=== PATIENT | male | born 1970 | race Caucasian/White ===

== ENCOUNTER → 2020-01-23 07:41 | Outpatient (CLI) | payer BC, SELFPAY ==
--- NOTE | ~2020-01-23 | CT_ITS ---
EXAMINATION: CT abdomen pelvis wo con DATE: 01/23/2020 07:54 INDICATION: Incisional hernia; history of malignant left renal neoplasm TECHNIQUE: Computed tomography (CT) of the abdomen and pelvis was performed without intravenous contr ast. Automated exposure control and iterative reconstruction technique were employed. Exam dose: 103 3.84 mGy-cm total exam DLP. COMPARISON: 02/07/2019 CT abdomen pelvis with and without IV contrast material FINDINGS: Middle lobe calcified pulmonary granuloma. There is focal atelectasis and/or consolidation at the base of the lingula. There is mild discoid atelectasis or scarring in the dependent lower lobe s. Normal heart size. No pericardial or pleural effusion. Stable approximately 9 mm probable right hepatic cyst, not changed since 02/07/2019. The liver otherwi se appears unremarkable. No bile duct dilatation. The gallbladder is unremarkable. No pancreatic mass lesion, calcification or ductal dilatation is evident. Normal splenic size. Normal morphology of the adrenal glands. Status post left partial nephrectomy. No renal mass lesion is evident on this limited noncontrast exa mination. No urinary tract calculus or hydroureteronephrosis. The urinary bladder is relatively evacu ated which may account for diffuse moderate thickening of the urinary bladder wall; alternatively, th ere may be some bladder outlet obstruction secondary to prostate enlargement with secondary bladder w all thickening. No stranding is noted around the bladder to suggest cystitis. Normal caliber of the abdominal aorta without atherosclerotic calcification. No intraperitoneal or retroperitoneal or pelvic mass lesion or adenopathy or ascites is detected. There is a prominent amount of fecal material in the rectum and colon. No bowel obstruction or intrap eritoneal free air. There is a fat-containing supraumbilical mid ventral abdominal wall hernia measuring up to approximat chuck 3.3 cm maximal transverse and up to 12 mm AP dimension. Very small fat-containing umbilical hernia. IMPRESSION: Supraumbilical midline fat-containing approximately 1.2 x 3.3 cm ventral abdominal wall hernia Status post left partial nephrectomy for history of renal carcinoma Stable 9 mm hepatic cyst Reviewed, dictated and finalized at [facility]. Reviewed, dictated and finalized at [facility]. IMPRESSION: Supraumbilical midline fat-containing approximately 1.2 x 3.3 cm v entral abdominal wall hernia Status post left partial nephrectomy for history of renal carcinoma Stable 9 mm hepatic cyst
== END ==
PROVIDERS: PCP Emergency Medicine; Visit Provider Surgery
DX: K43.2 Incisional hernia without obstruction or gangrene (principal); K43.9 Ventral hernia without obstruction or gangrene
CPT/HCPCS: 74176

== ENCOUNTER 2020-06-10 11:37 | Emergency (ER) | payer BC, SELFPAY ==
--- NOTE | 2020-06-10 11:41 | ED.GENADULT ---
HPI - General Adult General Chief complaint: Dizziness Stated complaint: Dizziness Time Seen by Provider: 06/10/20 11:55 Source: patient Mode of arrival: ambulatory Limitations: no limitations History of Present Illness HPI narrative: 49-year-old male patient presents to the [facility] with complaints of dizziness that started yesterday. Patient states he has been having issues with his ears and has been having ringing to his ears for the past year. Patient states he did some [id number] cleaning out of the wax about 6 months ago which he states did help a little bit with his hearing but continued to have the ringing to the ears. Patient states that he does wear ear buds on a daily basis and listens to music. Patient states he started feeling kind of funny yesterday and states that he was walking to his car after practice yesterday he started to feel like the room was spinning. Patient states when he got home he vomited. Patient states he does feel better when he lays down and closes eyes however whenever he tries to get up or opens his eyes the dizziness and the nausea start. Denies any chest pain or shortness of breath. Denies any fevers. Denies any vision changes. Related Data Allergies Allergy/AdvReac Type Severity Reaction Status Date / Time No Known Allergies Allergy Verified 01/29/20 13:16 Review of Systems Review of Systems: Narrative: CONSTITUTIONAL: Denies fever, chills, or sweats. EYES: Denies visual changes, redness, or discharge. ENT: Denies rhinorrhea, congestion, sore throat, or otalgia. CARDIOVASCULAR: Denies chest pain, palpitations, or edema. RESPIRATORY: Denies cough or dyspnea. GASTROINTESTINAL: Denies abdominal pain, positive nausea, vomiting, denies diarrhea. GENITOURINARY: Denies dysuria or hematuria. SKIN: Denies rash or itching. MUSCULOSKELETAL: Denies back pain, joint pain, or myalgia. NEUROLOGIC: Denies headache, numbness, or weakness. Positive dizziness PSYCHIATRIC: Denies anxiety or depression. [facility] Past Medical History Medical History Anxiety GERD (gastroesophageal reflux disease) History of kidney cancer JACKI (obstructive sleep apnea) Ulcerative colitis Surgical History Surgical History H/O inguinal hernia repair History of partial nephrectomy 2013 Social History Social History Smoking status: Never smoker Alcohol intake: current Comments At the time of my signature I agree with nursing past medical history, surgical, social, and family history. There is no relevant family history pertinent to the presenting complaint. Exam Narrative: Exam Narrative: GENERAL: Well-appearing, well-nourished, and in no acute distress. HEAD: Normocephalic, atraumatic. EYES: PERRLA and EOMI. ENT: Nares clear, no rhinorrhea or epistaxis. Mucous membranes moist. Bilateral TMs unable to be assessed due to cerumen impaction. Posterior pharynx with no erythema, tonsil enlargement, exudates or lesions present. NECK: Supple. No lymphadenopathy CHEST: Clear to auscultation. No respiratory distress. HEART: Regular rate and rhythm. No murmur heard. Normal peripheral pulses. ABDOMEN: Soft, nontender, nondistended, normal active bowel sounds. EXTREMITIES: Normal range of motion. No edema. SKIN: Warm, dry, no rash. NEURO: Alert and oriented x4, GCS 15. Cranial nerves II through XII grossly intact. No focal neurological deficits. Normal muscle strength and tone. Normal deep tendon reflexes. Negative Babinski, normal finger to nose coordination he had normal heel to taylor glide. Speech is clear. Normal gait. Negative Romberg and no pronator drift Course Reevaluation(s) Reevaluation #1: Reevaluated patient after receiving medications. Patient states that the nausea has improved still complaining of a little bit of dizziness. Discussed with patien
[2020-06-10 11:53] VITALS: BP 128/82; PULSE 84; RESP 20; TEMP 36.2; O2SAT 98
[2020-06-10] MEDS: ONDANSETRON HCL ODT 4 MG TABLET PO (12:06)
[2020-06-10] MEDS: MECLIZINE HCL 25 MG TABLET PO (12:06)
== END 2020-06-10 12:47 | disposition home or self-care (01) ==
PROVIDERS: Emergency Provider Nurse Practitioner Family; PCP Emergency Medicine
DX: R42 Dizziness and giddiness (principal); H61.23 Impacted cerumen, bilateral; K21.9 Gastro-esophageal reflux disease without esophagitis; G47.33 Obstructive sleep apnea (adult) (pediatric); Z85.528 Personal history of other malignant neoplasm of kidney; F41.9 Anxiety disorder, unspecified
CPT/HCPCS: 99213; A9270; G0463

== ENCOUNTER 2020-06-12 10:44 | Emergency (ER) | payer BC, SELFPAY ==
--- NOTE | ~2020-06-12 | CT_ITS ---
EXAMINATION: CT brain wo [facility] EXAM DATE: 06/12/2020 12:32 INDICATION: Dizziness, nausea and vomiting. TECHNIQUE: Spiral CT of the head was performed without contrast. Axial, coronal and sagittal images were reviewed. The dose-length product (DLP) for this examination was 605.33 mGy-cm. The exposure w as tailored according to patient size, and iterative reconstruction (ASIR) was used as additional dos e reduction technique. There is no prior study for comparison. FINDINGS: There is no acute intraparenchymal hemorrhage. No evidence of intraparenchymal brain mass lesion. No evidence of acute infarction. There is no mass effect or midline shift. The ventricles are normal in size. There are no extra-axial collections. There are no acute calvarial fractures. T he orbits are unremarkable. Soft tissue is unremarkable. Moderate to severe bilateral ethmoid mucop eriosteal thickening. No sinus air-fluid levels. Mastoid air cells are well aerated. IMPRESSION: 1. No acute intracranial findings. 2. Moderate to severe ethmoid mucoperiosteal thickening. Reviewed, dictated and finalized at location [facility].
--- NOTE | ~2020-06-12 | XR_ITS ---
EXAMINATION: XR chest 2V DATE: 06/12/2020 11:30 INDICATION: Dizziness TECHNIQUE: PA and lateral views of the chest are obtained. COMPARISON: 02/28/2019 FINDINGS: The lungs are free of acute opacities. Calcified left lymph nodes are consistent with old g ranulomatous disease. There is no pleural effusion or pneumothorax. The cardiomediastinal silhouette is normal. The visualized bones and soft tissues are unremarkable. IMPRESSION: 1. No acute cardiopulmonary abnormality. Reviewed, dictated and finalized at [facility].
[2020-06-12 10:44] VITALS: BP 123/80; PULSE 91; RESP 16; TEMP 37; O2SAT 99
--- NOTE | 2020-06-12 10:50 | ECG_ITS ---
Measurements Intervals [place] Rate: 79 P: -11 AR: 165 QRS: 144 QRSD: 100 T: 0 QT: 373 QTc: 428 Interpretive Statements SINUS OR ECTOPIC ATRIAL RHYTHM WITH SINUS ARRHYTHMIA INCOMPLETE RIGHT BUNDLE BRANCH BLOCK LEFT POSTERIOR FASCICULAR BLOCK NONSPECIFIC T-WAVE ABNORMALITY- INF/HIGH LAT LEADS BASELINE WANDER- V4-V6 ABNORMAL ECG Electronically Signed On 06-12-2020 11:41:15 CDT by Gaudencio Bailey D.O.
[2020-06-12 11:13] LABS: Basophils Absolute Auto 0.1 K/mm3 (0.0-0.1); Eosinophils Absolute Auto 0.2 K/mm3 (0-0.3); Eosinophils Percent Auto 3.1 % (0-4.4); Hematocrit 45.5 % (42.0-52.0); Hemoglobin 14.6 g/dL (14.0-18.0); Immature Granulocyte Absolute 0.02 K/mm3 (0.00-0.031); Immature Granulocyte Percent A 0.3 % (0-0.5); Lymphocytes Percent Auto 19.7 % (18.3-44.2); Mean Corpuscular HGB Conc 32.1 g/dl (32-36); Mean Corpuscular Hemoglobin 26.6 pg (26-34); Mean Platelet Volume 11.5 fl (7.4-10.4); Monocytes Absolute Auto 0.6 K/mm3 (0.1-0.6); Monocytes Percent Auto 9.9 % (2.6-8.5); Platelet Count Result 199 k/mm3 (150-375); Red Blood Count 5.48 M/mm3 (4.6-6.20); Red Cell Distribution Width 14.9 % (11.5-14.5); White Blood Count 6.1 K/mm3 (4.5-10.0)
[2020-06-12 11:25] LABS: Alanine Aminotransferase 19 U/L (4-50); Albumin Level 4.4 g/dL (3.5-5.1); Alkaline Phosphatase 89 U/L (38-126); Anion Gap 14.8 mmol/L (7-16); Aspartate Amino Transferase 21 U/L (17-59); Bilirubin,Total 0.4 mg/dL (0.2-1.3); Blood Urea Nitrogen 18 mg/dL (9-20); Calcium 9.1 mg/dL (8.4-10.2); Carbon Dioxide 25 mmol/L (22-30); Chloride 101 mmol/L (98-107); Estimated CRCL calculation 101 ml/min; Estimated Glomerular Filt Rate > 60; Glucose 110 mg/dL (75-110); Potassium 3.8 mmol/L (3.4-5.0); Sodium 137 mmol/L (137-145)
[2020-06-12 11:59] VITALS: BP 113/74; PULSE 67; RESP 14; O2SAT 95
--- NOTE | 2020-06-12 12:00 | PC.NURSE ---
pt placed on cardiac, nibp, o2 monitor at this time. Pt provided urinal and will attempt to provide a sample.
--- NOTE | 2020-06-12 12:04 | PC.NURSE ---
erp dr. shirley at bedside for assessment.
--- NOTE | 2020-06-12 12:08 | ED.DIZZY ---
HPI - Dizziness General Chief Complaint: Dizziness Stated Complaint: DIZZY Time Seen by Provider: 06/12/20 11:54 Source: RN notes reviewed History of Present Illness HPI Narrative: Patient presents emergency department from home for dizziness. Patient states symptoms began 5 days ago. States that dizzy when he is up and ambulating with room spinning to the right and resolves when he sits down. He states that 4 days ago he went to the urgent care and was prescribed meclizine and Zofran. States Zofran does help with his nausea but he continues to have dizziness. He denies any fevers or chills chest pain shortness of breath vision changes numbness or tingling in the extremities or any other symptoms Related Data Allergies Allergy/AdvReac Type Severity Reaction Status Date / Time No Known Allergies Allergy Verified 06/12/20 12:21 Review of Systems Review of Systems: Narrative: Gen.: Denies fevers or chills Eyes: Denies eye pain or visual change ENT: Denies congestion Respiratory: Denies shortness of breath or cough CV: Denies chest pain or palpitations GI: Denies abdominal pain nausea, emesis or diarrhea denies burning, urgency, frequency or hematuria Musculoskeletal: Denies back pain or muscle pain Neuro: See HPI Skin: Denies rash Except as documented, all other systems reviewed and negative [facility] [place] Past Medical History Medical History Anxiety GERD (gastroesophageal reflux disease) History of kidney cancer JACKI (obstructive sleep apnea) Ulcerative colitis Social History Social History Smoking status: Never smoker Alcohol intake: current Gender identity (if verbalized by the patient): Male Exam Narrative: Exam Narrative: APPEARANCE: No acute distress, nontoxic, resting in bed HEENT: Normocephalic, atraumatic, OMM, unable to view bilateral TMs secondary to cerumen impaction bilaterally EYES: PERRL, EOMI NECK: Supple, nontender, full range of motion without pain, no meningismus RESPIRATORY: No respiratory distress, clear to auscultation bilaterally with no rhonchi wheezing or rales CARDIOVASCULAR: RRR s murmur ABDOMINAL: Soft, nontender, nondistended MUSCULOSKELETAL: Moves all extremities. No clubbing, cyanosis or edema. NEURO: A and O ?3, following commands, speech normal, cranial nerves II through XII grossly intact,muscle strength 5 out of 5 bilateral upper and lower extremities SKIN:: Warm, dry. Normal Color PSYCHIATRIC: Normal affect/mood Course Course Emergency Course: Patient states dizziness is improved following Valium able to get up and ambulate feeling mildly dizzy but in no need of assistance Called discussed Dr. Cedillo presentation work-up. Agrees with plan for discharge. He is a plan for aspirin with plan for MRI as outpatient ' Discussed with patient results of workup and diagnosis. Discussed need for follow-up with primary care, proper use of medication, and reasons to return to the emergency department. Patient understands and agrees to current treatment plan Vital Signs Vital signs: Vital Signs Temperature 98.6 F 06/12/20 10:44 Pulse Rate 91 06/12/20 10:44 Respiratory Rate 16 06/12/20 10:44 Blood Pressure 123/80 06/12/20 10:44 Pulse Oximetry 99 06/12/20 10:44 Temperature 98.6 F 06/12/20 10:44 Pulse Rate 77 06/12/20 15:01 Respiratory Rate 15 06/12/20 15:01 Blood Pressure 110/79 06/12/20 15:01 Pulse Oximetry 98 06/12/20 15:01 MDM - Dizziness MDM Narrative Medical decision making narrative: Patient's vertigo is felt to be likely peripheral in origin. There is no diplopia, dysarthria or dysphagia. Patient's gait is stable and there are no cerebral deficits to exam. Risk factor for central causes of vertigo reviewed. Patient felt likely reasonable for continued outpatient management and risks are felt to outweigh benefits for further imaging studies
[2020-06-12 12:47] LABS: Add Urine Microscopic? YES; Appearance Urine Clear (Clear); Bacteria Urine Trace /hpf; Bilirubin Urine Negative (Negative); Blood Urine Negative (Negative); Color Urine Yellow (Yellow); Glucose Urine UA Negative (Negative); Ketones Urine Trace mg/dL (Negative); Leukocyte Esterase Ur Negative LEU/UL (Negative); Mucus Urine Few /lpf; Nitrate Urine Negative (Negative); Protein Urine 1+ mg/dL (Negative); Squamous Epithelial Cell Urine Rare /hpf (Few)
[2020-06-12 12:49] LABS: Specific Grav Ur 1.034 (1.001-1.035)
[2020-06-12 15:01] VITALS: BP 110/79; PULSE 77; RESP 15; O2SAT 98
[2020-06-12] MEDS: ASPIRIN 81 MG CHEWABLE TABLET PO (15:30)
[2020-06-12 16:00] VITALS: BP 119/79; PULSE 89; RESP 17; O2SAT 98
== END 2020-06-12 14:00 | disposition home or self-care (01) ==
PROVIDERS: Emergency Provider Emergency Medicine; PCP Emergency Medicine
DX: R42 Dizziness and giddiness (principal); K21.9 Gastro-esophageal reflux disease without esophagitis; G47.33 Obstructive sleep apnea (adult) (pediatric); Z85.528 Personal history of other malignant neoplasm of kidney; I45.2 Bifascicular block; R94.31 Abnormal electrocardiogram [ECG] [EKG]
CPT/HCPCS: 36415; 70450; 71046; 80053; 81001; 85025; 93005; 96374; 99284; A9270; J3360

== ENCOUNTER 2020-07-16 14:41 | Outpatient (CLI) | payer BC, SELFPAY ==
--- NOTE | ~2020-07-16 | MR_ITS ---
EXAMINATION: MRA brain wo con DATE: 07/16/2020 15:20 INDICATION: Occlusion and stenosis of basilar artery. Vertigo. TECHNIQUE: Magnetic resonance angiography (MRA) of the brain was performed without intravenous contra st with T1-weighted SPGR by the 3D [id number] technique. Maximum intensity projection 3D-reconstr uctions were obtained. COMPARISON: Head CT 06/12/2020 FINDINGS: Right vertebral artery is dominant. There is no significant stenosis of basilar artery or the posteri or cerebral arteries. The posterior communicating arteries are normal. There is no significant stenos is of the intracranial internal carotid arteries or anterior or middle cerebral arteries. Left A1 ant erior cerebral artery segment is small, a normal variant. There is no aneurysm. IMPRESSION: 1. Normal brain MRA. Reviewed, dictated and finalized at location [facility]. IMPRESSION: 1. Normal brain MRA.
== END 2020-07-16 14:42 | disposition home or self-care (01) ==
PROVIDERS: PCP Emergency Medicine; Visit Provider Emergency Medicine
DX: I65.1 Occlusion and stenosis of basilar artery (principal)
CPT/HCPCS: 70544

== ENCOUNTER 2020-07-24 07:36 | Outpatient (CLI) | payer BC, SELFPAY ==
--- NOTE | ~2020-07-24 | XR_ITS ---
EXAMINATION: XR chest 2V 07/24/2020 08:06 INDICATION: Malignant neoplasm of the left kidney PROCEDURE: 2 view chest COMPARISON: Comparison to multiple prior studies sequentially, with oldest reviewed study dated 01/26. FINDINGS: The lungs are clear. The cardiomediastinal silhouette is within normal limits. There are no pleural effusions. There is no pneumothorax suspected. IMPRESSION: 1: NO ACUTE CARDIOPULMONARY DISEASE. Reviewed, dictated and finalized at location [facility].
--- NOTE | ~2020-07-24 | CT_ITS ---
EXAMINATION: CT abdomen pelvis wo/w con DATE: 07/24/2020 08:15 INDICATION: Restaging left renal malignancy TECHNIQUE: Computed tomography (CT) of the abdomen and pelvis was performed without and subsequently with 100 cc Omnipaque 350 intravenous contrast. Automated exposure control and iterative reconstructi on technique were employed. Exam dose: 1218.04 mGy-cm total exam DLP. COMPARISON: 01/23/2020 CT abdomen pelvis FINDINGS: Middle lobe calcified pulmonary granuloma. Minimal discoid atelectasis or scarring at the l jennifer bases. No infiltrate or consolidation. Normal heart size. No pericardial or pleural effusion. 8 mm right hepatic cyst. The liver is otherwise unremarkable. Focal apparent posterior gallbladder wall calcification. No gallbladder wall thickening or pericholec ystic fluid or stranding. No bile duct or pancreatic duct dilatation. No pancreatic mass lesion or ca lcification. Normal splenic size. Normal morphology of the adrenal glands. Again noted is postoperative change from partial left nephrectomy for history of left renal carcinoma . No recurrent renal malignancy or metastatic disease is evident. No urinary tract calculus or hydrou reteronephrosis. The urinary bladder appears unremarkable. There is moderately prominent prostate enl argement. Normal caliber of the abdominal aorta. No intraperitoneal or retroperitoneal or pelvic mass lesion or adenopathy or ascites. There is a very prominent amount of fecal material within the colon. The splenic flexure and transver se colon in particular prominently distended with feces, the transverse colon measuring up to 7.6 cm diameter. No significant bowel wall thickening or pneumatosis however is evident. No bowel obstruction or intraperitoneal free air is detected. Small supraumbilical fat-containing ventral abdominal wall hernias are noted. Included skeletal structures are unremarkable; no suspicious osteolytic or osteoblastic lesions are n oted. IMPRESSION: Status post left partial nephrectomy for renal carcinoma; no recurrence or metastatic di sease is noted Very prominent amount fecal material within the colon 8 mm right hepatic cyst Focal posterior gallbladder wall calcification Reviewed, dictated and finalized at [facility]. Reviewed, dictated and finalized at [facility]. IMPRESSION: Status post left partial nephrectomy for renal carcinoma; no recur rence or metastatic disease is noted Very prominent amount fecal material within the colon 8 mm right hepatic cyst Focal posterior gallbladder wall calcification
== END 2020-07-24 07:37 | disposition home or self-care (01) ==
PROVIDERS: PCP Emergency Medicine; Visit Provider Urology
DX: C64.2 Malignant neoplasm of left kidney, except renal pelvis (principal); Z90.5 Acquired absence of kidney; K76.89 Other specified diseases of liver; K80.20 Calculus of gallbladder without cholecystitis without obstruction
CPT/HCPCS: 71046; 74178; Q9967

== ENCOUNTER 2021-01-17 08:23 | Outpatient (CLI) | payer BC, SELFPAY ==
--- NOTE | ~2021-01-17 | XR_ITS ---
EXAMINATION: XR ankle RT 2V EXAM DATE: 01/17/2021 08:37 INDICATION: M25.571 - Pain in right ankle and joints of right foot . States history of fall one month ago. TECHNIQUE: Frontal and lateral projections of the right ankle. There is no prior study for comparis on. FINDINGS: There are no acute right ankle fractures or dislocations identified. There is no subcutane ous gas. The soft tissue is unremarkable. There are no radiopaque foreign bodies. IMPRESSION: 1. Unremarkable XR ankle RT 2V exam. Reviewed, dictated and finalized at location [facility]. 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
== END 2021-01-17 08:24 | disposition home or self-care (01) ==
PROVIDERS: PCP Emergency Medicine; Visit Provider Emergency Medicine
DX: M25.571 Pain in right ankle and joints of right foot (principal)
CPT/HCPCS: 73600

== ENCOUNTER 2021-08-10 07:16 | Outpatient (CLI) | payer BC, SELFPAY ==
--- NOTE | ~2021-08-10 | XR_ITS ---
EXAMINATION: XR chest 2V DATE: 08/10/2021 08:20 INDICATION: Malignant neoplasm of the left kidney TECHNIQUE: PA and lateral views of the chest were obtained. COMPARISON: Chest radiograph dated 07/24/2020 FINDINGS: The lungs remain clear with no focal airspace opacities, pulmonary edema, pleural effusion or pneumot horax. The cardiomediastinal silhouette is normal. Visualized bones and soft tissues are unremarkable . IMPRESSION: 1. No acute cardiopulmonary disease. Reviewed, dictated and finalized at [facility].
--- NOTE | ~2021-08-10 | CT_ITS ---
EXAMINATION: CT abdomen wo/w con DATE: 08/10/2021 07:52 INDICATION: Malignant neoplasm of left kidney TECHNIQUE: Computed tomography (CT) of the abdomen was performed without and subsequently with 100 cc Omnipaque 350 intravenous contrast. Automated exposure control and iterative reconstruction techniqu e were employed. Exam dose: 1000.88 mGy-cm total exam DLP. COMPARISON: 07/24/2020 CT abdomen pelvis FINDINGS: Small gallstone. There are occasional hepatic cysts measuring up to 7 mm. Normal splenic si ze. No pancreatic mass lesion or calcification. No bile duct or pancreatic duct dilatation. Normal morphology of the adrenal glands. No right renal mass lesion or right urinary tract calculus or hydronephrosis. Status post left partial nephrectomy. No left renal mass lesion or urinary tract calculus or hydronep hrosis. Normal caliber of the abdominal aorta. No intraperitoneal or retroperitoneal mass lesion or adenopath y or ascites. Small sliding hiatal hernia. No bowel obstruction, bowel wall thickening, pneumatosis or intraperiton eal free air is detected. Supraumbilical fat-containing abdominal wall hernia. Included skeletal structures are unremarkable. IMPRESSION: Status post partial left nephrectomy; no renal mass lesion or urinary tract calculus or hydronephrosis or abdominal adenopathy Cholelithiasis Hepatic cysts Reviewed, dictated and finalized at [facility]. Reviewed, dictated and finalized at [facility]. IMPRESSION: Status post partial left nephrectomy; no renal mass lesion or urin le tract calculus or hydronephrosis or abdominal adenopathy Cholelithiasis Hepatic cysts
== END 2021-08-10 07:17 | disposition home or self-care (01) ==
PROVIDERS: PCP Emergency Medicine; Visit Provider Urology
DX: C64.2 Malignant neoplasm of left kidney, except renal pelvis (principal); Z98.890 Other specified postprocedural states; K80.20 Calculus of gallbladder without cholecystitis without obstruction; K76.89 Other specified diseases of liver
CPT/HCPCS: 71046; 74170; Q9967

== ENCOUNTER 2021-09-05 07:22 | Outpatient (CLI) | payer BC, SELFPAY ==
[2021-09-05 08:05] LABS: Alanine Aminotransferase 30 U/L (4-50); Albumin Level 4.4 g/dL (3.5-5.1); Alkaline Phosphatase 74 U/L (38-126); Anion Gap 8 mmol/L (8-16); Aspartate Amino Transferase 34 U/L (17-59); Bilirubin,Total 0.4 mg/dL (0.2-1.3); Blood Urea Nitrogen 17 mg/dL (9-20); Calcium 9.1 mg/dL (8.4-10.2); Carbon Dioxide 27 mmol/L (22-30); Chloride 102 mmol/L (98-107); Cholesterol 179 mg/dL (0-200); Estimated Glomerular Filt Rate > 60; Glucose 106 mg/dL (65-110); HDL Direct 46 mg/dL; Potassium 4.2 mmol/L (3.4-5.0); Sodium 137 mmol/L (137-145); Triglycerides 58 mg/dL (<150)
[2021-09-05 08:16] LABS: LDL Cholesterol Direct 108 mg/dL
[2021-09-05 08:36] LABS: Prostate Specific Antigen 1.6 ng/mL (< OR = 4.0)
== END 2021-09-05 07:23 | disposition home or self-care (01) ==
LOC: ANHLAB 07:24
PROVIDERS: PCP Emergency Medicine; Visit Provider Emergency Medicine
DX: Z13.6 Encounter for screening for cardiovascular disorders (principal); Z12.5 Encounter for screening for malignant neoplasm of prostate
CPT/HCPCS: 36415; 80053; 80061; 84153; G0103

== ENCOUNTER 2022-04-09 08:25 | Outpatient (CLI) | payer BC, SELFPAY ==
[2022-04-09 09:34] LABS: Hematocrit 43.4 % (42.0-52.0); Hemoglobin 14.2 g/dL (14.0-18.0); Mean Corpuscular HGB Conc 32.7 g/dl (32-36); Mean Corpuscular Hemoglobin 28.9 pg (26-34); Mean Corpuscular Volume 88.4 fl (80-100); Mean Platelet Volume 12.1 fl (7.4-10.4); Platelet Count Result 128 k/mm3 (150-375); Red Blood Count 4.91 M/mm3 (4.6-6.20); Red Cell Distribution Width 13.4 % (11.5-14.5); White Blood Count 5.4 K/mm3 (4.5-10.0)
[2022-04-09 09:59] LABS: Alanine Aminotransferase 36 U/L (6-50); Albumin Level 4.5 g/dL (3.5-5.1); Alkaline Phosphatase 75 U/L (38-126); Anion Gap 7 mmol/L (8-16); Aspartate Amino Transferase 29 U/L (17-59); Bilirubin,Total 0.3 mg/dL (0.2-1.3); Blood Urea Nitrogen 18 mg/dL (9-20); CRP < 0.5 mg/dL (<1.0); Calcium 8.8 mg/dL (8.4-10.2); Carbon Dioxide 25 mmol/L (22-30); Chloride 103 mmol/L (98-107); Estimated Glomerular Filt Rate > 60; Glucose 101 mg/dL (65-110); Potassium 3.8 mmol/L (3.4-5.0); Sodium 135 mmol/L (137-145)
[2022-04-09 10:27] LABS: Erythrocyte Sedimentation Rate 13 mm/hr (0-20)
[2022-04-13 14:34] LABS: Vitamin D 1,25 (OH)2 Total 23 pg/mL (18-72); Vitamin D2 1,25 (OH)2 <8 pg/mL; Vitamin D3 1,25 (OH)2 23 pg/mL
== END 2022-04-09 08:26 | disposition home or self-care (01) ==
PROVIDERS: PCP Emergency Medicine; Visit Provider Nurse Practitioner Family
DX: Z13.6 Encounter for screening for cardiovascular disorders (principal); K51.20 Ulcerative (chronic) proctitis without complications
CPT/HCPCS: 36415; 80053; 82652; 85027; 85652; 86140

== ENCOUNTER 2022-08-07 12:57 | Emergency (ER) | payer BC, SELFPAY ==
[2022-08-07 13:06] VITALS: BP 126/78; PULSE 77; RESP 16; TEMP 37; O2SAT 99
--- NOTE | 2022-08-07 13:28 | ED.SKABFB ---
HPI - Skin/Abscess/Foreign Bdy General Chief complaint: Skin/Abscess/Foreign Body Stated complaint: Rash on forehead Time Seen by Provider: 08/07/22 13:28 History of Present Illness HPI narrative: Vickey Davison a 51-year-old male with a history of ulcerative colitis on Humira and depression who [facility] with a rash on his left temporal area that is blistered and moving towards eye does not cross the midline of his forehead and has some swelling associated with it he says it is very painful it has been itchy has had it for 3 to 4 days Related Data Home Medications Medication Instructions Recorded Confirmed adalimumab 10 mg/0.2 mL 10 mg subcut [id number] 09/09/20 08/07/22 subcutaneous syringe kit (Humira) Allergies Allergy/AdvReac Type Severity Reaction Status Date / Time No Known Allergies Allergy Verified 08/07/22 13:04 Review of Systems Review of Systems: CONSTITUTIONAL: Denies fever, chills, sweats. EYES: Denies visual changes, redness, discharge. ENT: Denies rhinorrhea, congestion, sore throat, otalgia. CARDIOVASCULAR: Denies chest pain, palpitations, edema. RESPIRATORY: Denies dyspnea, wheezing, cough GASTROINTESTINAL: Denies abdominal pain, nausea, vomiting, diarrhea. GENITOURINARY: Denies dysuria, hematuria, abnormal discharge SKIN: Denies rash or itching. Rash to left roman catholic that is blistered with pain NEUROLOGIC: Denies numbness, or focal weakness. PSYCHIATRIC: Denies anxiety or depression. [facility] Past Medical History Medical History Anxiety GERD (gastroesophageal reflux disease) History of kidney cancer JACKI (obstructive sleep apnea) Ulcerative colitis Surgical History Surgical History H/O inguinal hernia repair History of partial nephrectomy 2013 Social History Social History Alcohol intake: current Alcohol use details: VERY RARELY Substance use: never Additional living arrangements comments: Additional occupation/education comments: [place] [employer], [employer] Gender identity (if verbalized by the patient): Male Spiritual care concerns: No Comments At time of signature, I agree with nursing past medical, surgical, social and family history. There is no relevant family history pertinent to the presenting complaint. Exam Narrative: GENERAL: This is a well-nourished, well-developed patient, in mild distress. HEAD: normocephalic, atraumatic. EYES: Sclera clear/white. Vision is grossly intact. EARS: External ears normal, . Hearing grossly intact. NOSE: External nose normal without nasal discharge, nares without redness, no rhinorrhea. THROAT: Mucous membranes moist, NECK: Neck supple, non-tender CARDIOVASCULAR: Regular rate and rhythm without murmurs, gallops, or rubs. RESPIRATORY: Clear to auscultation. Breath sounds equal bilaterally. No wheezes, rales, or rhonchi. GASTROINTESTINAL: Not done SKIN: warm, intact with blisters to left roman catholic area with pain and some pruresis NEURO: awake, alert, and oriented to person, place and time. There were no obvious focal neurologic abnormalities. Steady gait EXTREMITIES: Normal range of motion. BACK: Nontender without deformity Course Course Emergency Course: Rash on left roman catholic that started 3 to 4 days ago very painful to the touch Started on valacyclovir and given directions that if it continues to spread and face to go to the doctor or fire control mechanic Level of Care: Express Care Visit Vital Signs Vital signs: Vital Signs Temperature 98.6 F 08/07/22 13:06 Pulse Rate 77 08/07/22 13:06 Respiratory Rate 16 08/07/22 13:06 Blood Pressure 126/78 08/07/22 13:06 Pulse Oximetry 99 08/07/22 13:06 Oxygen Delivery Room Air 08/07/22 13:06 Temperature 98.6 F 08/07/22 13:06 Pulse Rate 77 08/07/22 13:06 Respiratory Rat
== END 2022-08-07 13:56 | disposition home or self-care (01) ==
PROVIDERS: Emergency Provider Nurse Practitioner; PCP Emergency Medicine
DX: B02.9 Zoster without complications (principal); K21.9 Gastro-esophageal reflux disease without esophagitis; Z85.528 Personal history of other malignant neoplasm of kidney; G47.33 Obstructive sleep apnea (adult) (pediatric)
CPT/HCPCS: 99213; G0463

== ENCOUNTER 2022-08-16 06:52 | Outpatient (CLI) | payer BC, SELFPAY ==
--- NOTE | ~2022-08-16 | CT_ITS ---
EXAMINATION: CT abdomen wo/w con DATE: 08/16/2022 07:23 INDICATION: Malignant neoplasm of left kidney, except renal pelvis. TECHNIQUE: Computed tomography (CT) of the abdomen was performed without and with 100 mL Omnipaque 35 0 intravenous contrast. Automated exposure control and iterative reconstruction technique were employ ed. The dose-length product was 1369.34 mGy-cm. COMPARISON: CT abdomen 08/10/2021 FINDINGS: The visualized portions of the lung bases demonstrated mild atelectasis. Again seen is a 5 mm nodule in right middle lobe, likely benign. No pleural effusion. The heart size is normal. No anitra cardial effusion. There is a small sliding hiatal hernia. There are cysts in the liver measuring up t o 9 mm. The gallbladder, spleen, pancreas, adrenal glands, and right kidney are normal. There are sarkis nges of partial left nephrectomy. There is a supraumbilical ventral hernia containing fat. There are no dilated loops of bowel. There are no pathologically enlarged lymph nodes. There is no free intrape ritoneal fluid. There is mild lumbar spondylosis. IMPRESSION: 1. Partial left nephrectomy. No evidence of recurrent malignancy or metastatic disease. 2. Supraumbilical ventral hernia containing fat. Reviewed, dictated and finalized at location B.
--- NOTE | ~2022-08-16 | XR_ITS ---
EXAMINATION: XR chest 2V 08/16/2022 07:13 INDICATION: Malignant neoplasm of the left kidney. PROCEDURE: 2 view chest COMPARISON: 02/28/2019 FINDINGS: The lungs are clear. The cardiomediastinal silhouette is within normal limits. There are no pleural effusions. There is no pneumothorax suspected. IMPRESSION: 1: NO ACUTE CARDIOPULMONARY DISEASE. Reviewed, dictated and finalized at location A.
== END 2022-08-16 06:53 | disposition home or self-care (01) ==
LOC: ANHIMG 06:55
PROVIDERS: PCP Emergency Medicine; Visit Provider Urology
DX: C64.2 Malignant neoplasm of left kidney, except renal pelvis (principal); K42.9 Umbilical hernia without obstruction or gangrene; K43.9 Ventral hernia without obstruction or gangrene
CPT/HCPCS: 71046; 74170; Q9967

== ENCOUNTER 2022-09-13 01:50 | Day surgery (SDC) | payer BC, SELFPAY ==
[2022-09-01 15:51] VITALS: BMI 30.8
[2022-09-13 09:32] VITALS: BP 122/75; PULSE 83; RESP 18; TEMP 36.7; O2SAT 98; BMI 29.5
[2022-09-13] MEDS: LACTATED RINGERS 1,000 ML 150 ML IV CONT (09:38)
--- NOTE | 2022-09-13 09:47 | WPDANESEPPF ---
Anes - Initial Pre Proc Eval Procedure: Operation Date: 09/13/22 10:30 Proposed Procedures p Colonoscopy - Fredis Caputo MD Date/Time: 09/13/22 09:47 Surgeon: Fredis Caputo MD Pre Op Diagnosis: Ulcerative Colitis Patient Data Age: 51 Gender: M Height: 1.88 m Weight: 104.2 kg Last Vital Signs Temp 36.7 C 09/13/22 09:32 Pulse 83 09/13/22 09:32 Resp 18 09/13/22 09:32 BP 122/75 09/13/22 09:32 Pulse Ox 98 09/13/22 09:32 O2 Del Method Room Air 09/13/22 09:32 Allergies Allergy/AdvReac Type Severity Reaction Status Date / Time No Known Allergies Allergy Verified 09/13/22 09:31 Home Medications Medication Instructions Recorded Confirmed Type sildenafil 100 mg tablet 100 mg PO DAILY PRN sexual 06/01/22 09/01/22 Rx activity #14 tabs sertraline 50 mg tablet 50 mg PO HS #90 tabs 06/21/22 09/01/22 Rx adalimumab 40 mg/0.4 mL See Rx Instructions subcut 08/24/22 09/01/22 Rx subcutaneous syringe kit .COMPLEX #2 ea (Humira(CF)) Patient hx anesthesia problems: none Family hx anesthesia problems: none Results Review: All pre-operative results and documents have been reviewed as part of the pre-operative evaluation. [facility] Past Medical History Medical History Anxiety GERD (gastroesophageal reflux disease) History of kidney cancer JACKI (obstructive sleep apnea) Ulcerative colitis Surgical History Surgical History H/O inguinal hernia repair History of partial nephrectomy 2013 Social History Social History Smoking status: Never smoker Alcohol intake: current Alcohol use details: Rarely Substance use: never Substance use type: does not use Living arrangements: with family Additional living arrangements comments: Additional occupation/education comments: [address] [employer], [employer] Gender identity (if verbalized by the patient): Male Spiritual care concerns: No Anes - Eval Final PreProcedure Day of Procedure 09/13/22 09:47 Patient weight: overweight Heart: regular rate and rhythm Lungs: clear to auscultation Airway: Mallampati scale class II Neurological: alert and oriented Last oral intake: >/= 8 hours ASA classification: III Emergent: no Anesthetic plan: proceed Anesthesia type and monitoring: general GIVS and standard monitoring Results Review: All pre-operative results and documents have been reviewed as part of the pre-operative evaluation. Informed Consent: The patient's anesthetic plan and its attendant risks and benefits were discussed with the patient/family/POA. Questions were solicited and answers provided to the satisfaction of the patient/family/POA.
--- NOTE | 2022-09-13 10:29 | P.HP_ITS ---
History of Present Illness History of Present Illness Consent: Risks, benefits, and alternatives have been discussed and questions answered. Patient agrees to proceed with procedure. Chief complaint: Ulcerative Colitis Narrative: Vickey Davison is a 51 year old male Presents for surveillance colonoscopy. Patient has a history of ulcerative colitis. Current symptoms appears stable on Humira. Patient reports his current weight appetite and bowel movements are normal. Patient denies abdominal pain. He has had no bleeding. Family history is noncontributory. Review of Systems Review of Systems: Review of systems noncontributory. [facility] Past Medical History Medical History Anxiety GERD (gastroesophageal reflux disease) History of kidney cancer JACKI (obstructive sleep apnea) Ulcerative colitis Surgical History Surgical History H/O inguinal hernia repair History of partial nephrectomy 2013 Social History Social History Smoking status: Never smoker Alcohol intake: current Alcohol use details: Rarely Substance use: never Substance use type: does not use Living arrangements: with family Additional living arrangements comments: Additional occupation/education comments: [place] [employer], [employer] Gender identity (if verbalized by the patient): Male Spiritual care concerns: No Meds Home Medications and Allergies Home Medications Medication Instructions Recorded Confirmed Type sildenafil 100 mg tablet 100 mg PO DAILY PRN sexual 06/01/22 09/01/22 Rx activity #14 tabs sertraline 50 mg tablet 50 mg PO HS #90 tabs 06/21/22 09/01/22 Rx adalimumab 40 mg/0.4 mL See Rx Instructions subcut 08/24/22 09/01/22 Rx subcutaneous syringe kit .COMPLEX #2 ea (Humira(CF)) Allergies Allergy/AdvReac Type Severity Reaction Status Date / Time No Known Allergies Allergy Verified 09/13/22 09:31 Vital Signs Vital Signs - 24 hr 09/13/22 09:32 Temperature 98.1 F Pulse Rate 83 Respiratory Rate 18 Blood Pressure 122/75 Pulse Oximetry 98 Oxygen Delivery Room Air Exam Narrative: Physical exam reveals patient to be alert. Vital signs stable. HEENT exam is unremarkable. Patient is anicteric. Lungs are clear to auscultation and percussion. Heart is without murmur or extra sounds. Abdomen bowel sounds present soft nontender with no organomegaly. Digital external rectal exam normal. Assessment and Plan Assessment and plan (1) Ulcerative colitis: Code(s): K51.90 - Ulcerative colitis, unspecified, without complications Status: Acute Assessment and Plan: Patient with ulcerative colitis. Currently on Humira. He is stable on this medication has clinical remission. Plan is for surveillance colonoscopy now and consider this at at least 3 year intervals in the future. Further recommen dations may be given after colonoscopy.
[2022-09-13 11:17] VITALS: BP 101/64; PULSE 75; RESP 27; O2SAT 94
[2022-09-13 11:27] VITALS: BP 105/76; PULSE 67; RESP 17; O2SAT 97
[2022-09-13 11:37] VITALS: BP 110/73; PULSE 63; RESP 12; O2SAT 96
== END 2022-09-13 11:50 | disposition home or self-care (01) ==
PROVIDERS: PCP Emergency Medicine; Visit Provider Internal Medicine Gastroenterology
PROC: 0DJD8ZZ Inspection of Lower Intestinal Tract, Via Natural or Artificial Opening Endoscopic (ICD-10-PCS; CPT 45378; principal; 2022-09-13 10:30)
DX: K51.00 Ulcerative (chronic) pancolitis without complications (principal); D12.2 Benign neoplasm of ascending colon; D12.5 Benign neoplasm of sigmoid colon; K64.8 Other hemorrhoids; G47.33 Obstructive sleep apnea (adult) (pediatric); F41.9 Anxiety disorder, unspecified; Z90.5 Acquired absence of kidney
CPT/HCPCS: 45385; 45381; 45380; 88305; J2704; J7120

== ENCOUNTER 2022-12-06 00:49 | Day surgery (SDC) | payer BC, SELFPAY ==
[2022-11-22 15:04] VITALS: BMI 30.8
[2022-12-06 09:47] VITALS: BP 109/76; PULSE 90; RESP 20; TEMP 36.4; O2SAT 96
[2022-12-06] MEDS: LACTATED RINGERS 1,000 ML 150 ML IV CONT (09:49)
--- NOTE | 2022-12-06 10:26 | PM.HPGS ---
History of Present Illness History of Present Illness Consent: Risks, benefits, and alternatives have been discussed and questions answered. Patient agrees to proceed with procedure. Chief complaint: sigmoid colon polyp Narrative: Vickey Davison is a 52 year old male Presents for screening colonoscopy. Patient has a long history of ulcerative colitis. Colonoscopy performed in August revealed a very large polyp removed at 40cm as sigmoid colon that had high-grade dysplasia. Patient presents today for follow-up colonoscopy to ensure complete removal of this lesion. Patient reports his bowel habits currently are normal. Denies any bleeding. His weight has remained stable. Currently maintained on Humira 40mg subQ every 2 weeks. Past medical history is significant for renal cell carcinoma status post nephrectomy. He has an incisional hernia and an umbilical hernia that he is anticipating repair later this month. Review of Systems Review of Systems: Review of systems noncontributory. [facility] Past Medical History Medical History Anxiety GERD (gastroesophageal reflux disease) History of kidney cancer JACKI (obstructive sleep apnea) Ulcerative colitis Surgical History Surgical History H/O inguinal hernia repair bilateral H/O umbilical hernia repair History of partial nephrectomy 2013 Social History Social History Smoking status: Never smoker Alcohol intake: current Drinks per week: 2 Alcohol use details: Rarely Substance use: never Substance use type: does not use Living arrangements: with family Additional living arrangements comments: Occupation/Education: occupation Additional occupation/education comments: [place] [employer], [employer] Gender identity (if verbalized by the patient): Male Spiritual care concerns: No Meds Home Medications and Allergies Home Medications Medication Instructions Recorded Confirmed Type sildenafil 100 mg tablet 100 mg PO DAILY PRN sexual 06/01/22 12/06/22 Rx activity #14 tabs sertraline 50 mg tablet 50 mg PO HS #90 tabs 06/21/22 12/06/22 Rx adalimumab 40 mg/0.4 mL See Rx Instructions subcut 08/24/22 12/06/22 Rx subcutaneous syringe kit .COMPLEX #2 ea (Humira(CF)) chlorhexidine gluconate 4 % See Rx Instructions .Route 11/19/22 12/06/22 Rx topical liquid (Hibiclens) .COMPLEX #118 mL Allergies Allergy/AdvReac Type Severity Reaction Status Date / Time No Known Allergies Allergy Verified 12/06/22 09:45 Vital Signs Vital Signs - 24 hr 12/06/22 09:47 Temperature 97.6 F Pulse Rate 90 Respiratory Rate 20 Blood Pressure 109/76 Pulse Oximetry 96 Oxygen Delivery Room Air Exam Narrative: Physical exam reveals patient to be alert. Vital signs stable. HEENT exam is unremarkable. Patient is anicteric. Lungs are clear to auscultation and percussion. Heart is without murmur or extra sounds. Abdomen bowel sounds are present soft nontender with no organomegaly. Digital external rectal exam is normal. Assessment and Plan Assessment and plan (1) Ulcerative colitis: Code(s): K51.90 - Ulcerative colitis, unspecified, without complications Status: Acute Assessment and Plan: Patient with long history of ulcerative colitis. Plan for screening colonoscopy now consider this at yearly intervals. Currently felt stable on Humira anticipate continuing this dose medications. Will hold Humira at the time of surgery and restart the following week. (2) History of colon polyps: Code(s): Z86.010 - Personal history of colonic polyps Status: Acute Assessment and Plan: Large polyp in the sigmoid colon in August with high-grade dysplasia. Plan for follow-up colonoscopy at this time to ensure complete resection.
--- NOTE | 2022-12-06 11:17 | P.PNAN_ITS ---
Anes - Initial Pre Proc Eval Procedure: Operation Date: 12/06/22 11:00 Proposed Procedures p Colonoscopy - Fredis Caputo MD Date/Time: 12/06/22 11:17 Surgeon: Fredis Caputo MD Pre Op Diagnosis: sigmoid colon polyp Patient Data Age: 52 Gender: M Height: 1.88 m Weight: 104.3 kg Last Vital Signs Temp 97.6 F 12/06/22 09:47 Pulse 90 12/06/22 09:47 Resp 20 12/06/22 09:47 BP 109/76 12/06/22 09:47 Pulse Ox 96 12/06/22 09:47 O2 Del Method Room Air 12/06/22 09:47 Allergies Allergy/AdvReac Type Severity Reaction Status Date / Time No Known Allergies Allergy Verified 12/06/22 09:45 Home Medications Medication Instructions Recorded Confirmed Type sildenafil 100 mg tablet 100 mg PO DAILY PRN sexual 06/01/22 12/06/22 Rx activity #14 tabs sertraline 50 mg tablet 50 mg PO HS #90 tabs 06/21/22 12/06/22 Rx adalimumab 40 mg/0.4 mL See Rx Instructions subcut 08/24/22 12/06/22 Rx subcutaneous syringe kit .COMPLEX #2 ea (Humira(CF)) chlorhexidine gluconate 4 % See Rx Instructions .Route 11/19/22 12/06/22 Rx topical liquid (Hibiclens) .COMPLEX #118 mL Patient hx anesthesia problems: none Family hx anesthesia problems: none Results Review: All pre-operative results and documents have been reviewed as part of the pre- operative evaluation. [facility] Past Medical History Medical History Anxiety GERD (gastroesophageal reflux disease) History of kidney cancer JACKI (obstructive sleep apnea) Ulcerative colitis Surgical History Surgical History H/O inguinal hernia repair bilateral H/O umbilical hernia repair History of partial nephrectomy 2013 Social History Social History Smoking status: Never smoker Alcohol intake: current Drinks per week: 2 Alcohol use details: Rarely Substance use: never Substance use type: does not use Living arrangements: with family Additional living arrangements comments: Occupation/Education: occupation Additional occupation/education comments: [place] [employer], [employer] Gender identity (if verbalized by the patient): Male Spiritual care concerns: No Anes - Eval Final PreProcedure Day of Procedure 12/06/22 11:17 Patient weight: normal Heart: regular rate and rhythm Lungs: clear to auscultation Airway: Mallampati scale class II Neurological: alert and oriented Last oral intake: >/= 8 hours ASA classification: III Emergent: no Anesthetic plan: proceed Anesthesia type and monitoring: general GIVS and standard monitoring Results Review: All pre-operative results and documents have been reviewed as part of the pre- operative evaluation. Informed Consent: The patient's anesthetic plan and its attendant risks and benefits were discussed with the patient/family/POA. Questions were solicited and answers provided to the satisfaction of the patient/family/POA.
[2022-12-06 11:32] VITALS: BP 103/54; PULSE 70; RESP 20; O2SAT 93
[2022-12-06 11:42] VITALS: BP 110/69; PULSE 78; RESP 23; O2SAT 98
[2022-12-06 11:52] VITALS: BP 112/75; PULSE 73; RESP 16; O2SAT 98
== END 2022-12-06 12:07 | disposition home or self-care (01) ==
PROVIDERS: PCP Emergency Medicine; Visit Provider Internal Medicine Gastroenterology
PROC: 0DJD8ZZ Inspection of Lower Intestinal Tract, Via Natural or Artificial Opening Endoscopic (ICD-10-PCS; CPT 45378; principal; 2022-12-06 11:00)
DX: K51.30 Ulcerative (chronic) rectosigmoiditis without complications (principal); K64.8 Other hemorrhoids; K63.89 Other specified diseases of intestine; Z86.010 Personal history of colon polyps; G47.33 Obstructive sleep apnea (adult) (pediatric); K43.9 Ventral hernia without obstruction or gangrene; F41.9 Anxiety disorder, unspecified; Z85.528 Personal history of other malignant neoplasm of kidney; Z90.5 Acquired absence of kidney
CPT/HCPCS: 45378; 88305; 88342; J2704; J7120

== ENCOUNTER 2023-01-06 10:34 | Outpatient (CLI) | payer BC, SELFPAY | END 2023-01-06 10:35 | disposition home or self-care (01) | LOC: ANHLAB 10:35 | PROVIDERS: PCP Emergency Medicine; Visit Provider Anesthesiology | DX: K43.9 Ventral hernia without obstruction or gangrene (principal); Z01.818 Encounter for other preprocedural examination | CPT/HCPCS: 36415; 86850; 86900; 86901 ==

== ENCOUNTER 2023-01-08 17:03 | Observation (INO) | payer BC, SELFPAY ==
[2022-12-27 11:56] VITALS: BMI 30.2
--- NOTE | 2022-12-27 12:00 | PC.NURSE ---
Report to the Outpatient Waiting Room, entrance under the green pavilion located off [facility], at time 11:00 on date 01/07/23. Planned Procedure Time: 1:00. Time changes happen often and if your time is changed the preop area will call you the afternoon before. - You and your visitor will be asked to self-screen and do not enter if you have any COVID symptoms. - Only one visitor is requested with a max of two and NO children visitors are allowed at this time. - The patient visitor may be requested to leave or wait in car when not with patient due to distancing restrictions. - A mask is optional within the hospital at this time. Patients may have clear liquids (water, carbonated beverages, clear teas, apple juice) until 3 hours prior to surgery with a maximum of 20 ounces. - No food from midnight until time of surgery Take the following medications with a SIP of water the morning of surgery: NONE DO NOT STOP ANY OF YOUR OTHER PRESCRIPTION MEDICATIONS PRIOR TO SURGERY EXCEPT THE FOLLOWING Medications to discontinue per physician: N/A Date to take last dose: N/A Please no make-up, nail danish, hairspray, perfume, deodorant, or body powder the day of surgery. No jewelry (including any body piercings) or valuables the day of surgery, leave them at home. Please take a shower or bath the night before, or the morning of, surgery with an antibacterial soap. Wear comfortable, loose fitting clothing. - Jewelry must be removed prior to entering the operating room. Rings and piercings that are not removed may be cut off. - The hospital will not accept responsibility for valuables. - Please leave all valuables, including medications, at home the day of surgery. If you are going home after surgery, a licensed tram driver must drive you home. - NO public transportation without another adult if you receive anesthesia. - We recommend that an adult stay with you for 24 hours following discharge. - We also recommend that you do not drive, make important decision, drink alcoholic beverages, or take any drugs that were not prescribed by your health care provider for at least 24 hours after your discharge time. Follow any additional instructions given to you from your surgeon. If you or anyone in your household have experienced Covid symptoms in the past week, please notify your surgeon or the nurse liaison at the phone number below for possible testing. Telephone instructions given to PT- JENNIFER TONG and asked if any additional questions and then verbalized understanding. Patient advised to call surgeon office or pre surgery nurse liaison [phone] if any additional questions.
--- NOTE | 2023-01-06 18:19 | PM.SD2 ---
Same Day Admit/Disch: HPI History of Present Illness Narrative: Vickey Davison is a 52 year old male who had an umbilical hernia repair years ago. He had a robotic partial left nephrectomy in 2014. A supraumbilical trocar site hernia occurred following this surgery. He underwent repair of this with underlay PVPM mesh in 2016. since that time he has developed a recurrent incisional hernia at that site. By exam and CT scan this appears to be a 5 cm defect. Patient has been seen in the office and is taken to surgery at this time for robotic laparoscopic repair of this recurrent incisional hernia. Patient has ulcerative colitis and takes Humira. [facility] Past Medical History Medical History Anxiety GERD (gastroesophageal reflux disease) History of kidney cancer JACKI (obstructive sleep apnea) Ulcerative colitis Surgical History Surgical History H/O inguinal hernia repair bilateral H/O umbilical hernia repair History of partial nephrectomy 2013 Social History Social History Smoking status: Never smoker Alcohol intake: current Drinks per week: 2 Alcohol use details: VERY RARE Substance use: never Substance use type: does not use Living arrangements: with family Additional living arrangements comments: Occupation/Education: occupation Additional occupation/education comments: [place] [employer], [employer] Gender identity (if verbalized by the patient): Male Spiritual care concerns: No Same Day Admit/Disch: Med Pre-admit Medications Home Medications Medication Instructions Recorded Confirmed Type sertraline 50 mg tablet 50 mg PO HS #90 tabs 06/21/22 01/07/23 Rx adalimumab 40 mg/0.4 mL See Rx Instructions subcut 08/24/22 01/07/23 Rx subcutaneous syringe kit .COMPLEX #2 ea (Humira(CF)) sildenafil 100 mg tablet 100 mg PO DAILY PRN sexual 12/16/22 12/27/22 Rx activity #14 tabs ketorolac 10 mg tablet 10 mg PO Q6H 4 days #16 tabs 01/07/23 Rx oxycodone-acetaminophen 5 mg-325 1 - 2 tablet PO Q6H PRN pain #20 01/07/23 Rx mg tablet (Percocet) tabs polyethylene glycol 3350 17 17 g PO DAILY #510 grams 01/07/23 Rx gram/dose oral powder (Miralax) Exam Const: General: comfortable, no acute distress, alert and awake HENMT: Head: normocephalic and atraumatic Mouth: Yes Normal oral and palatal mucosa present Eyes: Conjunctivae: conjunctivae normal Pupils: Equal, round and reactive pupils present EOM: EOMs intact bilaterally Neck: Neck: normal visual inspection, no lymphadenopathy and nontender Resp: Effort & Inspection: normal respiratory effort Auscultation: clear to auscultation bilaterally Cardio: Rate: regular rate Rhythm: regular rhythm Heart sounds: no gallops, no murmurs and no rubs GI: Inspection: non-distended, scar and visible herniation ( Supraumbilical, just to the right of previous scar) GI Palp: Yes Soft to palpation, No Tenderness to palpation present (GI), No Hepatomegaly present, No Splenomegaly present and Yes Hernia present ( palpable defect approximately 5 cm, reducible) Auscultation: normal bowel sounds Skin: Lesions: no lesions Rashes: no rashes Neuro: General: no focal motor deficits and CN's II-XI intact bilaterally Cranial nerves: Yes Equal, round and reactive pupils present, Yes Bilaterally intact EOM present, Yes facial symmetry and Yes Midline tongue present Speech: normal speech Motor exam (neuro): 5/5 motor strength present throughout and Motor abnormalities not present Extrem: General: no clubbing, cyanosis or edema and edema Psych: Affect: normal affect Thought process: Normal thought process present Insight: Good insight present (Psych) DS: Summary Time Spent with Patient Time attestation: Total time spent providing and/or coordinating discharge services:
[2023-01-07] VITALS (18 sets, daily range): BP systolic 101–141; BP diastolic 65–80; PULSE 66–85; RESP 10–22; TEMP 36.4–37; O2SAT 91–98
[2023-01-07] MEDS: ACETAMINOPHEN 500 MG TABLET 1000 MG PO (06:36)
[2023-01-07] MEDS: LACTATED RINGERS 1,000 ML 30 ML IV CONT ×2 (06:53→10:48)
[2023-01-07] MEDS: KETOROLAC 15 MG/ML VIAL (*BKC) IV PUSH (06:54)
--- NOTE | 2023-01-07 06:56 | WPDHPUPDATE1 ---
History and Physical Update Update Date/Time: 01/07/23 06:56 History and Physical has been reviewed, including an updated exam of the patient. There are NO changes in the patient's condition. Risks, benefits, and alternatives have been discussed and questions answered. Patient agrees to proceed with procedure.
--- NOTE | 2023-01-07 06:59 | P.PNAN_ITS ---
Anes - Initial Pre Proc Eval Procedure: Operation Date: 01/07/23 07:30 Proposed Procedures p Robotic Repair Recurrent Incisional Hernia with Mesh - Shaan Allen MD Date/Time: 01/07/23 06:59 Surgeon: Shaan Allen MD Pre Op Diagnosis: recurrent incisional hernia Patient Data Age: 52 Gender: M Height: 1.88 m Weight: 105.9 kg Last Vital Signs Temp 37.0 C 01/07/23 06:16 Pulse 66 01/07/23 06:16 Resp 16 01/07/23 06:16 BP 116/80 01/07/23 06:16 Pulse Ox 96 01/07/23 06:16 O2 Del Method Room Air 01/07/23 06:16 Allergies Allergy/AdvReac Type Severity Reaction Status Date / Time No Known Allergies Allergy Verified 01/07/23 06:29 Home Medications Medication Instructions Recorded Confirmed Type sertraline 50 mg tablet 50 mg PO HS #90 tabs 06/21/22 01/07/23 Rx adalimumab 40 mg/0.4 mL See Rx Instructions subcut 08/24/22 01/07/23 Rx subcutaneous syringe kit .COMPLEX #2 ea (Humira(CF)) sildenafil 100 mg tablet 100 mg PO DAILY PRN sexual 12/16/22 12/27/22 Rx activity #14 tabs Patient hx anesthesia problems: none Family hx anesthesia problems: none Results Review: All pre-operative results and documents have been reviewed as part of the pre- operative evaluation. [facility] Past Medical History Medical History Anxiety GERD (gastroesophageal reflux disease) History of kidney cancer JACKI (obstructive sleep apnea) Ulcerative colitis Surgical History Surgical History H/O inguinal hernia repair bilateral H/O umbilical hernia repair History of partial nephrectomy 2013 Social History Social History Smoking status: Never smoker Alcohol intake: current Drinks per week: 2 Alcohol use details: VERY RARE Substance use: never Substance use type: does not use Living arrangements: with family Additional living arrangements comments: Occupation/Education: occupation Additional occupation/education comments: [employer], [employer] Gender identity (if verbalized by the patient): Male Spiritual care concerns: No Anes - Eval Final PreProcedure Day of Procedure 01/07/23 06:59 Patient weight: obese Heart: regular rate and rhythm Lungs: clear to auscultation Airway: Mallampati scale class II Neurological: alert and oriented Last oral intake: >/= 8 hours ASA classification: III Emergent: no Anesthetic plan: proceed Anesthesia type and monitoring: general ETT and standard monitoring Results Review: All pre-operative results and documents have been reviewed as part of the pre- operative evaluation. Informed Consent: The patient's anesthetic plan and its attendant risks and benefits were discussed with the patient/family/POA. Questions were solicited and answers provided to the satisfaction of the patient/family/POA.
[2023-01-07] MEDS: ceFAZolin 2 GM/D5W 50 ML 2 GM/50 ML BAG IVPB (07:23)
[2023-01-07] MEDS: BUPIVACAINE/EPINEPHRINE 0.5% 10 ML VIAL 19 ML INFILTRATE (08:08)
[2023-01-07] MEDS: fentaNYL CITRATE INJ (*CRX) 100 MCG/2 ML VIAL 25 MCG IV PUSH ×2 (11:08→11:23)
--- NOTE | 2023-01-07 11:17 | W.PM.PROC2 ---
Procedure Note - Detailed Date of Procedure 01/07/23 Pre-op Diagnosis recurrent incisional hernia Post-op Diagnosis Same Procedure Performed Robotic laparoscopic repair 5 cm recurrent incisional hernia with mesh, removal old abdominal wall mesh Surgeon Shaan Allen MD [employer] Repairer Fredis SHANNON Anesthesia General and Local Indications Patient is a 52-year-old man who had a previous upper abdominal hernia repair with underlay mesh. This was a trocar site hernia. His hernia has recurred and is 5 cm in diameter by both exam and CT scan. He is taken to surgery now for repair of this recurrent incisional hernia Findings Patient had a 5 cm hernia several cm cephalad to the umbilicus. There was no umbilical hernia. The old mesh appeared to have contracted and herniated along the some caudal and right aspect of the previous mesh. All of the previous mesh was removed. Description of Procedure Patient was taken to surgery and induced into general anesthesia. The abdomen is prepped and draped. An applied Medical optical trocar was placed 1st at the left subcostal position. Local was infiltrated prior to placement of each of the trocars. We insufflated the abdomen and verified we had intraperitoneal location. Under direct visualization, an 8 mm robotic left lateral port was placed. Then a left lower quadrant 8 mm robotic port was placed. We then reviewed the initial trocar and exchanged it for an 8 mm robotic port. Robot was then brought into the field. The camera port was docked in the camera was targeted. We then docked the other 2 arms that were used for the surgery. The surgeon then went to the console. There were omental adhesions and properitoneal fat incarcerated in the hernia defect. On reducing the incarcerated contents, the old mesh was found. It was cephalad and to the left of the hernia defect. The herniated contents were completely reduced. The hernia mesh was excised. The mesh was cut in half and removed from the abdomen in 2 pieces. It was sent to pathology for gross only. I then dissected the peritoneum from around the edges of the hernia so that I could see the fascia well. An 0 V lock suture was then used. The hernia defect was closed in transverse fashion using the 0 V lock. A 20 x [address] mesh was chosen. A suture was placed in the center of the mesh. The mesh was introduced into the abdominal cavity. It was unrolled and the suture was grasped and the mesh pulled up so that the center of the mesh was directly under the hernia defect and centered well. 3-0 Vicryl suture were then used and the cranial aspect of the mesh was sutured to the peritoneum. Similarly the caudal into the mesh was sutured to the peritoneum in the midline. We then used 2 0 V lock suture. Starting on the patient's right side in the middle of the mesh, the mesh was sutured in running fashion to the anterior abdominal wall. This was continued circumferentially. Four 2 0 V lock suture were required to completely go around the perimeter of the mesh and secure it. The mesh was in good position and very snug against the anterior abdominal wall. Finally another 0 V lock suture was used and ran from cranial to caudal down the center of the mesh to secure it to the midline. We then reviewed the operative area. All looked good. We evacuated CO2 and undocked the robot. Trocars were removed. Skin wounds were closed with subcuticular 4-0 Monocryl skin suture. The wounds were dressed with Exofin surgical adhesive. The patient was awakened and taken to recovery in good condition. Sponge and needle counts were correct x2. Implants 20 x [address] mesh Estimated Blood Loss -10.0 Drains No Packing No Pathology Yes (Old mesh gross only) Complications No immediate complications Condition Stable Disposition PACU [facility] Billing Surgery - Charge Forward: Surgery Billing (Robotic laparoscopic repair recurrent incisional 5 cm hernia with
[2023-01-07] MEDS: oxyCODONE HCL (*CRX) 5 MG TAB IR PO (12:15)
[2023-01-07] MEDS: ONDANSETRON INJ 4 MG/2 ML VIAL IV PUSH (12:55)
[2023-01-07] MEDS: IBUPROFEN IV 800 MG/200 ML 800 MG/200 ML BAG 400 MG IVPB ×2 (13:25→17:51)
--- NOTE | 2023-01-07 14:03 | SUR.PHASEII ---
RN called 3rd medical and the room has not been cleaned yet. Floor RN will call for report when room is cleaned.
--- NOTE | 2023-01-07 15:14 | ADMGEN ---
This patient, Vickey Davison, was admitted to Medical Room 344-01. Patient/family oriented to hospital policies and general routines including ID bracelet, bed and alarms, visiting hours, pain management, procedures, bathroom and other care routines, personal items, smoking policy, room service/diet, and visiting hours. Information on how to activate the Rapid Response Team has been discussed. Patient/Family are encouraged to report perceived risks to care and to ask questions if they do not understand what they are told or what they should do.
[2023-01-07] MEDS: LACTATED RINGERS 1,000 ML 100 ML IV CONT (15:21)
[2023-01-07 20:00] LABS: Glucose Point of Care 122 mg/dl (65-105)
[2023-01-07] MEDS: SENNA/DOCUSATE SODIUM TABLET 2 TAB PO (21:14)
[2023-01-07] MEDS: SERTRALINE HCL 50 MG TABLET PO (21:14)
[2023-01-08 00:39] VITALS: BP 111/64; PULSE 72; RESP 18; TEMP 36.6; O2SAT 94
[2023-01-08] MEDS: IBUPROFEN IV 800 MG/200 ML 800 MG/200 ML BAG 400 MG IVPB ×3 (00:47→12:05)
[2023-01-08 04:39] VITALS: BP 120/64; PULSE 88; RESP 20; TEMP 36.6; O2SAT 96
[2023-01-08] MEDS: LACTATED RINGERS 1,000 ML 100 ML IV CONT ×2 (05:50→20:12)
[2023-01-08 07:00] LABS: Hematocrit 39.5 % (42.0-52.0); Hemoglobin 12.8 g/dL (14.0-18.0); Mean Corpuscular HGB Conc 32.4 g/dl (32-36); Mean Corpuscular Hemoglobin 28.8 pg (26-34); Mean Corpuscular Volume 88.8 fl (80-100); Mean Platelet Volume 11.5 fl (7.4-10.4); Platelet Count Result 144 k/mm3 (150-375); Red Blood Count 4.45 M/mm3 (4.6-6.20); Red Cell Distribution Width 13.7 % (11.5-14.5); White Blood Count 8.4 K/mm3 (4.5-10.0)
[2023-01-08 07:01] LABS: Anion Gap 4 mmol/L (8-16); Blood Urea Nitrogen 15 mg/dL (9-20); Carbon Dioxide 28 mmol/L (22-30); Chloride 103 mmol/L (98-107); Estimated CRCL calculation 98 ml/min; Estimated Glomerular Filt Rate > 60; Glucose 104 mg/dL (65-110); Potassium 3.7 mmol/L (3.4-5.0); Sodium 135 mmol/L (137-145)
[2023-01-08] MEDS: ENOXAPARIN 40 MG/0.4 ML SYRINGE SUB-Q (08:39)
[2023-01-08] MEDS: polyethylene glycoL 3350 17 GM POWD.PACK PO (08:40)
[2023-01-08 09:00] VITALS: BP 117/75; PULSE 82; RESP 16; TEMP 36.6; O2SAT 95
[2023-01-08 14:23] VITALS: BP 115/71; PULSE 76; RESP 18; TEMP 36.8; O2SAT 97
--- NOTE | 2023-01-08 15:11 | WPDANESPN ---
Anes - Prog Note Post-Op Date/Time: 01/08/23 15:11 Cardiovascular status: normal Respiratory status: normal Airway patency: baseline Mental status: baseline Post-Op hydration status: normal Vital Signs: Last Vital Signs Temp 98.3 F 01/08/23 14:23 Pulse 76 01/08/23 14:23 Resp 18 01/08/23 14:23 BP 115/71 01/08/23 14:23 Pulse Ox 97 01/08/23 14:23 O2 Del Method Room Air 01/07/23 20:00 O2 Flow Rate 2 01/07/23 11:30 Pain Score (VAS): 0 I/O: Intake & Output 01/07/23 01/08/23 01/08/23 23:59 07:59 15:59 Intake Total 680 1400 300 Output Total 0 675 Balance 680 725 300 Laboratory Tests 01/08/23 06:14 01/08/23 06:14 01/07/23 01/08/23 01/08/23 19:58 06:14 06:14 WBC 8.4 RBC 4.45 L Hgb 12.8 L Hct 39.5 L MCV 88.8 MCH 28.8 MCHC 32.4 RDW 13.7 Plt Count 144 L MPV 11.5 H Sodium 135 L Potassium 3.7 Chloride 103 Carbon Dioxide 28 Anion Gap 4 L BUN 15 Creatinine 0.90 Estim Creat Clear Calc 98 Estimated GFR > 60 Glucose 104 POC Capillary Glucose 122 H Calcium 8.0 L Post-procedural complaints: none Patient Feedback: Patient satisfied with anesthetic care.
--- NOTE | 2023-01-08 15:43 | PM.PNGS ---
Progress Note: A&P Assessment and Plan (1) Recurrent incisional hernia: Code(s): K43.2 - Incisional hernia without obstruction or gangrene Status: Acute Assessment and Plan: Repair intact. Pain is improving. He has been taking IV Calot the lower with good success. Will advance diet to regular and try oral analgesics. Repair is intact. If doing well tomorrow will likely discharge. (2) Ulcerative colitis: Qualifiers: Ulcerative colitis location: ulcerative proctitis Digestive disease complication type: without complication Qualified Code(s): K51.20 - Ulcerative (chronic) proctitis without complications Code(s): K51.90 - Ulcerative colitis, unspecified, without complications Status: Chronic (3) Long-term use of immunosuppressant medication: Code(s): Z79.60 - public relations specialist (current) use of unspecified immunomodulators and immunosuppressants Status: Chronic Assessment and Plan: Humira for ulcerative colitis Subjective Subjective Date/Time Seen: 01/08/23 15:43 Post Op day: 1 Patient reports: feels better, pain is less, voiding w/o difficulty, no flatus and no bowel movement Review of Systems Review of Systems: All systems reviewed & are unremarkable except as noted in HPI and below (HPI and those items noted below) Constitutional: Constitutional: Denies chills and Denies fever(s) Cardiovascular: Cardiovascular: Denies chest pain, Denies diaphoresis, Denies dyspnea and Denies paroxysmal nocturnal dyspnea Respiratory: Respiratory: Denies chest congestion, Denies cough and Denies dyspnea Integumentary/Breasts: Skin/Breast: Denies lesions and Denies rash Exam Const: General: comfortable and no acute distress; No confusion Orientation/consciousness: patient oriented x3 and No confusion GI: Inspection: non-distended, incision (Healing well) and no visible herniation GI Palp: Yes Firmness to palpation present (GI), Yes Tenderness to palpation present (GI), No Guarding due to palpation present (GI), No Hernia present and No Rebound tenderness present Auscultation: normal bowel sounds Neuro: General: patient oriented x3, no focal motor deficits and No confusion Extrem: General: no calf tenderness and no edema Psych: Affect: normal affect Insight: Good insight present (Psych) Judgement: Good judgement present (Psych) Objective Data Vital Signs Vital Signs: Vital Signs - 24 hr 01/07/23 16:05 01/07/23 19:46 01/07/23 20:00 Temperature 36.6 C 36.8 C Pulse Rate 85 85 78 Respiratory Rate 18 20 22 H Blood Pressure 110/66 104/66 Pulse Oximetry 94 92 95 Oxygen Delivery Room Air 01/08/23 00:39 01/08/23 04:39 01/08/23 09:00 Temperature 36.6 C 36.6 C 36.6 C Pulse Rate 72 88 82 Respiratory Rate 18 20 16 Blood Pressure 111/64 120/64 117/75 Pulse Oximetry 94 96 95 Oxygen Delivery 01/08/23 14:23 Temperature 36.8 C Pulse Rate 76 Respiratory Rate 18 Blood Pressure 115/71 Pulse Oximetry 97 Oxygen Delivery Intake/Output Intake/Output: Intake & Output 01/05/23 01/06/23 01/07/23 01/08/23 23:59 23:59 23:59 23:59 Intake Total 1530 1700 Output Total 0 675 Balance 1530 1025 Meds/Results Medications: Active Medications Generic Name Dose Route Start Last Admin Trade Name Freq PRN Reason Stop Dose Admin Acetaminophen 500 mg 01/07/23 14:54 Acetaminophen 500 Mg Tablet PO Q6H PRN Mild Pain (1-3) or Fever Hydrocodone Bitart/Acetaminophen 1 tab 01/07/23 14:54 Hydrocodone/Acetaminophen (*Crx) 5-325 Mg Tablet PO Q4H PRN Pain Rated 4-6 Hydrocodone Bitart/Acetaminophen 1 tab 01/07/23 14:54 Hydrocodone/Acetaminophen (*Crx) 10-325 Mg Tablet PO Q6H PRN Pain Rated 7-10 Diphenhydramine HCl 25 mg 01/07/23 14:54 Diphenhydramine Hcl Inj 50 Mg/Ml Vial IV PUSH Q6H PRN Itching Enoxaparin Sodium 40 mg 01/08/23 09:00 01/08/23 08:39 Enoxaparin 40 Mg/0.4 Ml Syringe SUB-Q 40 m
[2023-01-08] MEDS: ACETAMINOPHEN 500 MG TABLET PO (19:05)
[2023-01-08 20:00] VITALS: PULSE 66; RESP 20; O2SAT 94
[2023-01-08] MEDS: SERTRALINE HCL 50 MG TABLET PO (20:10)
[2023-01-08] MEDS: SENNA/DOCUSATE SODIUM TABLET 2 TAB PO (20:10)
[2023-01-08 20:17] VITALS: BP 112/75; PULSE 66; RESP 20; TEMP 36.7; O2SAT 94
[2023-01-09 05:54] VITALS: BP 128/77; PULSE 89; RESP 18; TEMP 36.8; O2SAT 94
[2023-01-09 06:36] LABS: Anion Gap 2 mmol/L (8-16); Carbon Dioxide 28 mmol/L (22-30); Chloride 101 mmol/L (98-107); Potassium 3.7 mmol/L (3.4-5.0); Sodium 131 mmol/L (137-145)
[2023-01-09 06:37] LABS: Blood Urea Nitrogen 11 mg/dL (9-20); Calcium 8.3 mg/dL (8.4-10.2); Estimated CRCL calculation 124 ml/min; Estimated Glomerular Filt Rate > 60; Glucose 103 mg/dL (65-110)
[2023-01-09 06:43] LABS: Basophils Percent Auto 0.2 % (0.2-1.2); Eosinophils Absolute Auto 0.4 K/mm3 (0-0.3); Eosinophils Percent Auto 4.7 % (0-4.4); Hematocrit 40.8 % (42.0-52.0); Hemoglobin 13.3 g/dL (14.0-18.0); Immature Granulocyte Absolute 0.02 K/mm3 (0.00-0.031); Immature Granulocyte Percent A 0.2 % (0-0.5); Immature Platelet Fraction Pct 8.4 % (0.9-11.2); Lymphocytes Absolute Auto 0.95 K/mm3 (0.9-3.2); Lymphocytes Percent Auto 11.7 % (18.3-44.2); Mean Corpuscular HGB Conc 32.6 g/dl (32-36); Mean Corpuscular Hemoglobin 28.9 pg (26-34); Mean Corpuscular Volume 88.7 fl (80-100); Monocytes Absolute Auto 0.9 K/mm3 (0.1-0.6); Monocytes Percent Auto 11.6 % (2.6-8.5); Neutrophils Absolute Auto 5.8 K/mm3 (1.3-6.7); Neutrophils Percent Auto 71.6 % (45.5-73.1); Platelet Count Result 161 k/mm3 (150-375); Red Cell Distribution Width 13.6 % (11.5-14.5); White Blood Count 8.1 K/mm3 (4.5-10.0)
[2023-01-09] MEDS: polyethylene glycoL 3350 17 GM POWD.PACK PO (08:44)
[2023-01-09] MEDS: ENOXAPARIN 40 MG/0.4 ML SYRINGE SUB-Q (08:44)
--- NOTE | 2023-01-09 10:51 | PM.DS ---
DS: Admitting Diagnosis Discharge Date 01/09/2023 Admitting Diagnosis recurrent incisional hernia -5 cm ulcerative colitis-on Humira obstructive sleep apnea history of kidney cancer on the left DS: Discharge Diagnosis Discharge Diagnosis (1) Recurrent incisional hernia: Code(s): K43.2 - Incisional hernia without obstruction or gangrene Status: Chronic (2) Ulcerative colitis: Code(s): K51.90 - Ulcerative colitis, unspecified, without complications Status: Chronic (3) Long-term use of immunosuppressant medication: Code(s): Z79.60 - terminal superintendent (current) use of unspecified immunomodulators and immunosuppressants Status: Chronic (4) JACKI (obstructive sleep apnea): Code(s): G47.33 - Obstructive sleep apnea (adult) (pediatric) Status: Chronic (5) History of kidney cancer: Code(s): Z85.528 - Personal history of other malignant neoplasm of kidney Status: Chronic DS: Summary Hospital Course Hospital Course: patient is a 52-year-old man who in 2014 had a robotic left partial nephrectomy for renal cell cancer. He developed a trocar site incisional hernia in the hypogastric area and in 2016 underwent open repair with underlay PV p.m. mesh. This hernia recurred. He was seen in the office and by exam as well as CT scan found to have a recurrent incisional hernia of 5 cm diameter. After discussion, he was taken to surgery on 01/07/2023. He underwent robotic laparoscopic repair of recurrent incisional hernia with 15 x [address] mesh. He also had removal of the previous mesh which had shrunken significantly since placement and was likely the reason for the recurrence. Following surgery, he was having too much pain to be discharged. He was observed and given analgesics intravenously as well as orally. He was improved on postop day 1. But still very uncomfortable with ambulation. By postop day 2., he was comfortable taking very little for pain. He had not yet had a bowel movement. He was ambulating independently. His repair was intact and he was discharged in good condition. He plans to resume his Humira on Tuesday01/10/2023. He held his Humira 2 weeks ago. Status at Discharge Functional status at discharge: independent ambulation Overall status at discharge: patient is progressing back to baseline Time Spent with Patient Time attestation: Total time spent providing and/or coordinating discharge services: Time spent: Less than 30 minutes Exam Const: General: comfortable and no acute distress; No confusion Orientation/consciousness: patient oriented x3 and No confusion GI: Inspection: non-distended, incision ( Healing well) and no visible herniation GI Palp: Yes Soft to palpation, Yes Tenderness to palpation present (GI), No Guarding due to palpation present (GI), No Hernia present and No Rebound tenderness present Auscultation: normal bowel sounds Neuro: General: patient oriented x3, no focal motor deficits and No confusion Extrem: General: no calf tenderness and no edema Psych: Affect: normal affect Insight: Good insight present (Psych) Judgement: Good judgement present (Psych) DS: Data Data Completed and Pending Pending studies at discharge: Pending at discharge 01/07/23 08:16 Surgical [PTH] Routine Labs on day of discharge: Labs from last 24 hours 01/09/23 01/09/23 06:16 06:16 WBC 8.1 RBC 4.60 Hgb 13.3 L Hct 40.8 L MCV 88.7 MCH 28.9 MCHC 32.6 RDW 13.6 Plt Count 161 MPV 12.0 H Immature Gran % (Auto) 0.2 Neut % (Auto) 71.6 Lymph % (Auto) 11.7 L Mclennan % (Auto) 11.6 H Eos % (Auto) 4.7 H Baso % (Auto) 0.2 Lymph # (Auto) 0.95 Mclennan # (Auto) 0.9 H Eos # (Auto) 0.4 H Baso # (Auto) 0.0 Abs Immat Gran (auto) 0.02 Absolute Neuts (auto) 5.8 Absolute Nucleated RBC 0.0 Nucleated RBC % 0.0 % Immature Plt Fraction 8.4 Sodium 131 L Potassium 3.7 Chloride 101 Carbon Dioxid
== END 2023-01-09 11:34 | disposition home or self-care (01) ==
LOC: ANHSURGERY 17:06 → ANH3MED 17:06
PROVIDERS: Admitting Provider Surgery; PCP Emergency Medicine; Visit Provider Surgery
PROC: (CPT 49615; principal; 2023-01-07 07:30)
DX: K43.2 Incisional hernia without obstruction or gangrene (principal); K51.90 Ulcerative colitis, unspecified, without complications; G47.33 Obstructive sleep apnea (adult) (pediatric); Z90.5 Acquired absence of kidney; F41.9 Anxiety disorder, unspecified; F10.90 Alcohol use, unspecified, uncomplicated; E66.9 Obesity, unspecified; Z68.30 Body mass index [BMI] 30.0-30.9, adult; Z85.528 Personal history of other malignant neoplasm of kidney; Z79.60 Long term (current) use of unspecified immunomodulators and immunosuppressants; Z79.899 Other long term (current) drug therapy
CPT/HCPCS: 49615; 49623; 36415; 80048; 82948; 85025; 85027; 85055; 88300; A9270; C1781; G0378; G0379; J0690; J1100; J1170; J1650; J1741; J1885; J2250; J2405; J2704; J2710; J3010; J7030; J7120

== ENCOUNTER 2023-01-16 19:46 | Emergency (ER) | payer BC, SELFPAY ==
[2023-01-16 19:55] VITALS: BP 119/81; PULSE 75; RESP 18; TEMP 37.1; O2SAT 96
--- NOTE | 2023-01-16 23:00 | PC.NURSE ---
Patient comes to the desk and states I am just going to go home, I will call the surgeon in the morning. I will come back if I need to. Patient and his informed of the risks of leaving before being seen by ERP. Patient verbalized understanding. Patient and his ambulated out of the ED with a steady gait.
== END 2023-01-16 23:03 | disposition left against medical advice (07) ==
LOC: ANHED 20:10
PROVIDERS: PCP Emergency Medicine
DX: R21 Rash and other nonspecific skin eruption (principal)
CPT/HCPCS: 99199

== ENCOUNTER 2023-03-03 07:05 | Outpatient (CLI) | payer BC, SELFPAY ==
[2023-03-03 07:33] LABS: Alanine Aminotransferase 27 U/L (6-50); Albumin Level 4.4 g/dL (3.5-5.1); Alkaline Phosphatase 70 U/L (38-126); Anion Gap 7 mmol/L (8-16); Aspartate Amino Transferase 24 U/L (17-59); Bilirubin,Total 0.8 mg/dL (0.2-1.3); Blood Urea Nitrogen 20 mg/dL (9-20); Calcium 8.6 mg/dL (8.4-10.2); Carbon Dioxide 28 mmol/L (22-30); Chloride 100 mmol/L (98-107); Cholesterol 157 mg/dL (0-200); Estimated Glomerular Filt Rate > 60; Glucose 102 mg/dL (65-110); HDL Direct 39 mg/dL; Sodium 135 mmol/L (137-145); Triglycerides 50 mg/dL (<150)
[2023-03-03 07:44] LABS: LDL Cholesterol Direct 100 mg/dL
[2023-03-03 08:02] LABS: Prostate Specific Antigen 1.5 ng/mL (< OR = 4.0)
[2023-03-07 23:42] LABS: Vitamin D 1,25 (OH)2 Total 22 pg/mL (18-72); Vitamin D2 1,25 (OH)2 <8 pg/mL; Vitamin D3 1,25 (OH)2 22 pg/mL
== END 2023-03-03 07:06 | disposition home or self-care (01) ==
LOC: ANHLAB 07:06
PROVIDERS: PCP Emergency Medicine; Visit Provider Emergency Medicine
DX: F32.A Depression, unspecified (principal); E55.9 Vitamin D deficiency, unspecified; Z12.5 Encounter for screening for malignant neoplasm of prostate
CPT/HCPCS: 36415; 80053; 80061; 82652; 84153; G0103

== ENCOUNTER 2023-08-18 07:37 | Outpatient (CLI) | payer BC, SELFPAY ==
--- NOTE | ~2023-08-18 | XR_ITS ---
XR chest 2V DATE: 08/18/2023 07:51 INDICATION: Left kidney cancer TECHNIQUE: PA and lateral views COMPARISON: 08/16/2022 PA and lateral chest FINDINGS: Normal heart size. No hilar or mediastinal enlargement. No pulmonary infiltrate or consolid ation, pleural effusion or pulmonary vascular congestion or pneumothorax is detected. Included skelet al structures are unremarkable. IMPRESSION: No active cardiopulmonary disease Reviewed, dictated and finalized at location L.
--- NOTE | ~2023-08-18 | CT_ITS ---
CT of the Abdomen and Pelvis: Indication: Left renal cancer Technique: 2.5 mm axial scans were obtained through the abdomen and pelvis prior to and following in travenous administration of 100 cc of Omnipaque 350. Dose reduction technique was used on this scan b y utilizing automated exposure control and iterative reconstruction technique. The dose-length produc t (DLP) was 1608.52 mGy-cm. COMPARISON: 08/16/2022 Findings: Scans through the lung bases demonstrates stable 4 mm right middle lobe pulmonary nodule. The liver, spleen, pancreas, gallbladder, adrenals and right kidney are within normal limits. Patient is status post partial resection of the left kidney, unchanged from prior exam. No evidence of aorti c aneurysm. No lymphadenopathy. No bowel obstruction or bowel wall thickening. There is no evidence to suggest acute appendicitis. Images through the pelvis were performed. Urinary bladder unremarkable. No pelvic mass seen. No ascit es. Impression: Status post partial left nephrectomy, unchanged. No evidence for residual/recurrent metastatic diseas e. Stable 4 mm right middle lobe pulmonary nodule. Reviewed, dictated and finalized at location . Impression: Status post partial left nephrectomy, unchanged. No evidence for residual/recur rent metastatic disease. Stable 4 mm right middle lobe pulmonary nodule.
[2023-08-18 08:18] LABS: Estimated Glomerular Filt Rate > 60
== END 2023-08-18 07:38 | disposition home or self-care (01) ==
PROVIDERS: PCP Emergency Medicine; Visit Provider Urology
DX: C64.2 Malignant neoplasm of left kidney, except renal pelvis (principal); R91.1 Solitary pulmonary nodule
CPT/HCPCS: 71046; 74178; Q9967

== ENCOUNTER 2023-12-12 08:09 | Outpatient (CLI) | payer BC, SELFPAY ==
[2023-12-12 08:33] LABS: Hematocrit 44.2 % (42.0-52.0); Hemoglobin 14.3 g/dL (14.0-18.0); Immature Platelet Fraction Pct 9.2 % (0.9-11.2); Mean Corpuscular HGB Conc 32.4 g/dl (32-36); Mean Corpuscular Hemoglobin 28.3 pg (26-34); Mean Corpuscular Volume 87.4 fl (80-100); Mean Platelet Volume 11.5 fl (7.4-10.4); Platelet Count Result 165 k/mm3 (150-375); Red Blood Count 5.06 M/mm3 (4.6-6.20); Red Cell Distribution Width 13.4 % (11.5-14.5); White Blood Count 5.5 K/mm3 (4.5-10.0)
[2023-12-12 08:47] LABS: Alanine Aminotransferase 37 U/L (6-50); Albumin Level 4.4 g/dL (3.5-5.1); Alkaline Phosphatase 69 U/L (38-126); Anion Gap 9 mmol/L (8-16); Aspartate Amino Transferase 35 U/L (17-59); Bilirubin,Total 0.6 mg/dL (0.2-1.3); Blood Urea Nitrogen 19 mg/dL (9-20); CRP < 0.5 mg/dL (<1.0); Carbon Dioxide 25 mmol/L (22-30); Chloride 101 mmol/L (98-107); Estimated Glomerular Filt Rate > 60; Glucose 101 mg/dL (65-110); Sodium 135 mmol/L (137-145)
[2023-12-12 09:23] LABS: Erythrocyte Sedimentation Rate 14 mm/hr (0-20)
[2023-12-12 09:56] LABS: Hepatitis B Surface Antigen Negative (Negative)
[2023-12-12 10:13] LABS: Hepatitis B Surface Anti Res Negative
[2023-12-14 12:28] LABS: NIL 0.02 IU/mL; Quantiferon TB Plus, 1T NEGATIVE (NEGATIVE)
[2023-12-15 13:37] LABS: Hepatitis B Core Ab Total Nonreactive (Nonreactive)
== END 2023-12-12 08:10 | disposition home or self-care (01) ==
LOC: ANHLAB 08:10
PROVIDERS: PCP Emergency Medicine; Visit Provider Nurse Practitioner Family
DX: K51.90 Ulcerative colitis, unspecified, without complications (principal); Z79.899 Other long term (current) drug therapy; Z11.59 Encounter for screening for other viral diseases
CPT/HCPCS: 36415; 80053; 85027; 85055; 85652; 86140; 86480; 86704; 86706; 87340

== ENCOUNTER 2024-02-27 03:05 | Day surgery (SDC) | payer BC, SELFPAY ==
[2024-02-10 14:12] VITALS: BMI 29.0
[2024-02-27 11:10] VITALS: BP 124/76; PULSE 86; RESP 16; TEMP 36.8; O2SAT 96
[2024-02-27] MEDS: LACTATED RINGERS 1,000 ML 150 ML IV CONT (11:16)
--- NOTE | 2024-02-27 11:37 | WPDANESEPPF ---
Anes - Initial Pre Proc Eval Procedure: Operation Date: 02/27/24 12:30 Proposed Procedures p Colonoscopy - Perfecto Gee MD Date/Time: 02/27/24 11:37 Surgeon: Perfecto Gee MD Pre Op Diagnosis: colitis Patient Data Age: 53 Gender: M Height: 1.88 m Weight: 107.8 kg Last Vital Signs Temp 98.2 F 02/27/24 11:10 Pulse 86 02/27/24 11:10 Resp 16 02/27/24 11:10 BP 124/76 02/27/24 11:10 Pulse Ox 96 02/27/24 11:10 O2 Del Method Room Air 02/27/24 11:10 Allergies Allergy/AdvReac Type Severity Reaction Status Date / Time No Known Allergies Allergy Verified 02/27/24 11:07 Home Medications Medication Instructions Recorded Confirmed Type cholecalciferol (vitamin D3) 50 50 mcg PO DAILY #90 caps 03/11/23 02/10/24 Rx mcg (2,000 unit) capsule adalimumab 40 mg/0.4 mL 40 mg (0.4 mL) subcut Q14D #2 ea 07/02/23 02/10/24 Rx subcutaneous pen kit (Humira(CF) Pen) sildenafil 100 mg tablet See Rx Instructions .Route 12/02/23 02/10/24 Rx .COMPLEX #14 film sertraline 50 mg tablet See Rx Instructions .Route 01/20/24 02/10/24 Rx .COMPLEX #90 tabs Patient hx anesthesia problems: none Family hx anesthesia problems: none Results Review: All pre-operative results and documents have been reviewed as part of the pre-operative evaluation. [facility] Past Medical History Medical History (Updated 12/08/23 @ 12:32 by JENNA Remy) Anxiety GERD (gastroesophageal reflux disease) High risk medication use History of kidney cancer Need for hepatitis B screening test Obese JACKI (obstructive sleep apnea) Ulcerative colitis Surgical History Surgical History H/O inguinal hernia repair bilateral H/O umbilical hernia repair History of incisional hernia repair 01/07/2023 - Robotic laparoscopic repair 5 cm recurrent incisional hernia with mesh, removal old abdominal wall mesh History of partial nephrectomy 2013 Social History Social History Smoking status: Never smoker Alcohol intake: current Drinks per week: 2 Alcohol use details: rarely Substance use: never Substance use type: does not use Lack of Transportation: No Lack of Food: Never True Current Housing: I Have Housing Concerned About Future Housing: No Difficulty Paying Gas/Electric Bills: No Difficulty Paying for Meds: No Currently Unemployed: No Education: High School Diploma/GED Difficulty w/ Childcare or Family Care: No Living arrangements: with family Additional living arrangements comments: Occupation/Education: occupation Additional occupation/education comments: [employer], [employer] Gender identity (if verbalized by the patient): Male Spiritual care concerns: No Anes - Eval Final PreProcedure Day of Procedure 02/27/24 11:37 Patient weight: obese Heart: regular rate and rhythm Lungs: clear to auscultation Airway: Mallampati scale class II Neurological: alert and oriented Last oral intake: >/= 8 hours ASA classification: III Emergent: no Anesthetic plan: proceed Anesthesia type and monitoring: general GIVS and standard monitoring Results Review: All pre-operative results and documents have been reviewed as part of the pre-operative evaluation. Informed Consent: The patient's anesthetic plan and its attendant risks and benefits were discussed with the patient/family/POA. Questions were solicited and answers provided to the satisfaction of the patient/family/POA.
--- NOTE | 2024-02-27 12:43 | PM.HPGS ---
History of Present Illness History of Present Illness Consent: Risks, benefits, and alternatives have been discussed and questions answered. Patient agrees to proceed with procedure. Chief complaint: colitis Narrative: Vickey Davison is a 53 year old male with left sided uc since 2002, on humira since 2018 and doing well. Had in 2021 TA polyp in sigmoid with dysplasia but repeat colonoscopy 2022 normal right colon, + colitis in sigmoid Review of Systems Review of Systems: All systems reviewed & are unremarkable except as noted in HPI and below PMFSH Past Medical History Medical History Anxiety GERD (gastroesophageal reflux disease) High risk medication use History of kidney cancer Need for hepatitis B screening test Obese JACKI (obstructive sleep apnea) Ulcerative colitis Surgical History Surgical History H/O inguinal hernia repair bilateral H/O umbilical hernia repair History of incisional hernia repair 01/07/2023 - Robotic laparoscopic repair 5 cm recurrent incisional hernia with mesh, removal old abdominal wall mesh History of partial nephrectomy 2013 Social History Social History Smoking status: Never smoker Alcohol intake: current Drinks per week: 2 Alcohol use details: rarely Substance use: never Substance use type: does not use Lack of Transportation: No Lack of Food: Never True Current Housing: I Have Housing Concerned About Future Housing: No Difficulty Paying Gas/Electric Bills: No Difficulty Paying for Meds: No Currently Unemployed: No Education: High School Diploma/GED Difficulty w/ Childcare or Family Care: No Living arrangements: with family Additional living arrangements comments: Occupation/Education: occupation Additional occupation/education comments: [employer], [employer] Gender identity (if verbalized by the patient): Male Spiritual care concerns: No Meds Home Medications and Allergies Home Medications Medication Instructions Recorded Confirmed Type cholecalciferol (vitamin D3) 50 50 mcg PO DAILY #90 caps 03/11/23 02/10/24 Rx mcg (2,000 unit) capsule adalimumab 40 mg/0.4 mL 40 mg (0.4 mL) subcut Q14D #2 ea 07/02/23 02/10/24 Rx subcutaneous pen kit (Humira(CF) Pen) sildenafil 100 mg tablet See Rx Instructions .Route 12/02/23 02/10/24 Rx .COMPLEX #14 film sertraline 50 mg tablet See Rx Instructions .Route 01/20/24 02/10/24 Rx .COMPLEX #90 tabs Allergies Allergy/AdvReac Type Severity Reaction Status Date / Time No Known Allergies Allergy Verified 02/27/24 11:07 Vital Signs Vital Signs - 24 hr 02/27/24 11:10 Temperature 98.2 F Pulse Rate 86 Respiratory Rate 16 Blood Pressure 124/76 Pulse Oximetry 96 Oxygen Delivery Room Air Exam Const: General: comfortable and no acute distress HENMT: Face/Nose/Sinus: Normal nares present Eyes: General: appearance normal, both eyes and all related structures Neck: Neck: no JVD Resp: Auscultation: clear to auscultation bilaterally Cardio: Rate: regular rate Rhythm: regular rhythm GI: Inspection: non-distended GI Palp: Yes Soft to palpation Skin: General skin exam: normal color Neuro: General: gait normal Speech: normal speech Extrem: General: normal to inspection Psych: Mental Status: mental status grossly normal Assessment and Plan Assessment and plan (1) Ulcerative colitis: Code(s): K51.90 - Ulcerative colitis, unspecified, without complications Status: Chronic Assessment and Plan: on humira since 2018, clinically doing great last colonoscopy 2022 with inflammation in left colon (he has left sided UC) normally getting colonoscopies every 2-3 years
[2024-02-27 13:01] VITALS: BP 104/63; PULSE 68; RESP 17; O2SAT 96
[2024-02-27 13:11] VITALS: BP 115/74; PULSE 73; RESP 13; O2SAT 97
[2024-02-27 13:21] VITALS: BP 118/71; PULSE 71; RESP 20; O2SAT 96
== END 2024-02-27 13:27 | disposition home or self-care (01) ==
PROVIDERS: PCP Emergency Medicine; Visit Provider Internal Medicine Gastroenterology
PROC: 0DJD8ZZ Inspection of Lower Intestinal Tract, Via Natural or Artificial Opening Endoscopic (ICD-10-PCS; CPT 45378; principal; 2024-02-27 12:30)
DX: K52.89 Other specified noninfective gastroenteritis and colitis (principal); F41.9 Anxiety disorder, unspecified; K21.9 Gastro-esophageal reflux disease without esophagitis; G47.33 Obstructive sleep apnea (adult) (pediatric); E66.9 Obesity, unspecified; Z68.30 Body mass index [BMI] 30.0-30.9, adult; Z79.620 Long term (current) use of immunosuppressive biologic; Z98.890 Other specified postprocedural states; Z85.528 Personal history of other malignant neoplasm of kidney
CPT/HCPCS: 45380; 88305; J2704; J7120

== ENCOUNTER 2024-03-07 07:08 | Outpatient (CLI) | payer BC, SELFPAY ==
[2024-03-07 08:12] LABS: Alanine Aminotransferase 24 U/L (6-50); Albumin Level 4.4 g/dL (3.5-5.1); Alkaline Phosphatase 66 U/L (38-126); Anion Gap 7 mmol/L (4-12); Aspartate Amino Transferase 25 U/L (17-59); Bilirubin,Total 0.6 mg/dL (0.2-1.3); Blood Urea Nitrogen 20 mg/dL (9-20); Calcium 9.2 mg/dL (8.4-10.2); Carbon Dioxide 27 mmol/L (22-30); Chloride 103 mmol/L (98-107); Cholesterol 161 mg/dL (0-200); Estimated Glomerular Filt Rate > 60; Glucose 110 mg/dL (65-110); HDL Direct 36 mg/dL; Potassium 4.3 mmol/L (3.4-5.0); Sodium 137 mmol/L (137-145); Triglycerides 55 mg/dL (<150)
[2024-03-07 08:24] LABS: LDL Cholesterol Direct 110 mg/dL
[2024-03-07 08:39] LABS: Prostate Specific Antigen 1.8 ng/mL (< OR = 4.0)
[2024-03-07 09:11] LABS: Vitamin D 25 Hydroxy 39.3 ng/mL
[2024-03-08 14:38] LABS: H pylori, Urea Breath NOT DETECTED (NOT DETECTED)
== END 2024-03-07 07:09 | disposition home or self-care (01) ==
LOC: ANHLAB 07:09
PROVIDERS: PCP Emergency Medicine; Visit Provider Emergency Medicine
DX: R10.9 Unspecified abdominal pain (principal); E78.5 Hyperlipidemia, unspecified; E55.9 Vitamin D deficiency, unspecified; Z12.5 Encounter for screening for malignant neoplasm of prostate
CPT/HCPCS: 36415; 80053; 80061; 82306; 83013; 84153; G0103

== ENCOUNTER 2024-04-30 16:13 | Emergency (ER) | payer BC, SELFPAY ==
[2024-04-30 16:26] VITALS: BP 117/74; PULSE 88; RESP 16; TEMP 36.6; O2SAT 98
--- NOTE | 2024-04-30 16:31 | ED.URI ---
HPI - URI/Sore Throat General Chief Complaint: Upper Respiratory Infection Stated Complaint: Runny Nose and Sore Throat Time Seen by Provider: 04/30/24 16:32 Source: patient, RN notes reviewed and old records reviewed Mode of arrival: ambulatory Limitations: no limitations History of Present Illness HPI Narrative: 53-year-old male presents to the [facility] with a 1 week history of a runny nose, sinus congestion. Woke up yesterday morning with a sore throat. No treatment prior to arrival Related Data Allergies Allergy/AdvReac Type Severity Reaction Status Date / Time No Known Allergies Allergy Verified 04/30/24 16:28 Review of Systems Review of Systems: All systems reviewed & are unremarkable except as noted in HPI and below Constitutional: Constitutional: Reports no additional constitutional complaints Eyes: Eyes: Reports no additional eye complaints ENT: Reports as per HPI Cardiovascular: Cardiovascular: Reports no additional cardiovascular complaints, Denies chest pain and Denies dyspnea Respiratory: Respiratory: Reports no additional respiratory complaints, Denies chest congestion, Denies cough and Denies dyspnea Gastrointestinal: Gastrointestinal: Reports no additional gastrointestinal complaints, Denies abdominal pain, Denies nausea and Denies vomiting Musculoskeletal: Musculoskeletal: Reports no additional musculoskeletal complaints Integumentary/Breasts: Skin/Breast: Reports system reviewed and no additional complaints, except as docu Neurologic: Reports system reviewed and no additional complaints, except as documented Psychiatric: Psychiatric: Reports no additional psychiatric complaints Allergic/Immunologic: Allergic/Immunologic: Reports no additional allergic/immunologic complaints [facility] Past Medical History Medical History Anxiety GERD (gastroesophageal reflux disease) High risk medication use History of kidney cancer Need for hepatitis B screening test Obese JACKI (obstructive sleep apnea) Ulcerative colitis Surgical History Surgical History H/O inguinal hernia repair bilateral H/O umbilical hernia repair History of incisional hernia repair 01/07/2023 - Robotic laparoscopic repair 5 cm recurrent incisional hernia with mesh, removal old abdominal wall mesh History of partial nephrectomy 2013 Social History Social History Smoking status: Never smoker Alcohol intake: current Drinks per week: 2 Alcohol use details: rarely Substance use: never Substance use type: does not use Do You Feel Safe in your Home?: Yes Lack of Transportation: No Lack of Food: Never True Current Housing: I Have Housing Concerned About Future Housing: No Difficulty Paying Gas/Electric Bills: No Difficulty Paying for Meds: No Currently Unemployed: No Education: High School Diploma/GED Difficulty w/ Childcare or Family Care: No Living arrangements: with family Additional living arrangements comments: Occupation/Education: occupation Additional occupation/education comments: [place] [employer], [employer] Gender identity (if verbalized by the patient): Male Spiritual care concerns: No Comments At the time of my signature, I reviewed and agree with the nursing past medical, surgical, social, and family history. There is no relevant family history pertinent to the patient complaint. Exam Const: General: cooperative, healthy appearing, comfortable, no acute distress, well developed, alert and well nourished Nutritional Appearance: well nourished Orientation/consciousness: patient oriented x3 Limitations: no limitations HENMT: Head: normal to inspection Ears: hearing grossly normal bilaterally and external ears normal Face/Nose/Sinus: Normal external nose present, Normal nares present, Normal nasal
== END 2024-04-30 16:52 | disposition home or self-care (01) ==
PROVIDERS: Emergency Provider Nurse Practitioner; PCP Emergency Medicine
DX: R09.82 Postnasal drip (principal); J02.9 Acute pharyngitis, unspecified
CPT/HCPCS: 87081; 87880; 99213; G0463

== ENCOUNTER 2024-05-04 11:24 | Emergency (ER) | payer BC, SELFPAY ==
--- NOTE | ~2024-05-04 | CT_ITS ---
EXAMINATION: CT brain wo con DATE: 05/04/2024 12:29 INDICATION: Syncope. TECHNIQUE: Computed tomography (CT) of the head was performed without intravenous contrast. The mA wa s adjusted according to patient size. Iterative reconstruction technique was employed. The dose-lengt h product was 681.00 mGy-cm. COMPARISON: Head CT 06/12/2020 FINDINGS: There is no intracranial hemorrhage, acute infarction, or abnormal intracranial mass lesion . There is a focus of low attenuation in the right frontoparietal deep white matter, which is within normal limits as an isolated finding. The ventricles are normal in size. There is mucosal thickening in the paranasal sinuses. The mastoid air cells are normal. IMPRESSION: 1. Normal aging brain. Reviewed, dictated and finalized at location A. IMPRESSION: 1. Normal aging brain.
[2024-05-04 11:27] VITALS: BP 128/93; PULSE 83; RESP 16; TEMP 36.6; O2SAT 100
--- NOTE | 2024-05-04 11:31 | ECG_ITS ---
Test Date: 2024-05-04 11:37:28 Measurements Intervals Yeoman Rate: 76 P: 28 HI: 200 QRS: 68 QRSD: 101 T: 45 QT: 386 QTc: 435 Interpretive Statements SINUS RHYTHM LOW QRS VOLTAGE IN PRECORDIAL LEADS [QRS DEFLECTION < 1.0 mV IN CHEST LEADS] INCOMPLETE RIGHT BUNDLE BRANCH BLOCK [90+ ms QRS DURATION, TERMINAL R IN V1/V2, 40+ ms S IN I/aVL/V4/V5/V6] POSSIBLE ANTERIOR MYOCARDIAL INFARCTION , PROBABLY OLD [30 ms Q WAVE IN V3/V4, OR R < 0.2 mV IN V4] ABNORMAL ECG No previous ECG available for comparison Electronically Signed On 05-04-2024 12:43:37 CDT by Ford Reyes M.D.
[2024-05-04 11:46] VITALS: BP 110/88; PULSE 70; PULSE 75; RESP 13; O2SAT 94
[2024-05-04 11:56] LABS: Basophils Absolute Auto 0.1 K/mm3 (0.0-0.1); Basophils Percent Auto 1.4 % (0.2-1.2); Eosinophils Absolute Auto 0.3 K/mm3 (0-0.3); Hematocrit 42.1 % (42.0-52.0); Hemoglobin 13.8 g/dL (14.0-18.0); Immature Granulocyte Absolute 0.02 K/mm3 (0.00-0.031); Immature Granulocyte Percent A 0.3 % (0-0.5); Lymphocytes Absolute Auto 1.67 K/mm3 (0.9-3.2); Lymphocytes Percent Auto 26.8 % (18.3-44.2); Mean Corpuscular HGB Conc 32.8 g/dl (32-36); Mean Corpuscular Hemoglobin 28.3 pg (26-34); Mean Corpuscular Volume 86.3 fl (80-100); Mean Platelet Volume 11.7 fl (7.4-10.4); Monocytes Absolute Auto 0.5 K/mm3 (0.1-0.6); Monocytes Percent Auto 8.5 % (2.6-8.5); Neutrophils Absolute Auto 3.7 K/mm3 (1.3-6.7); Platelet Count Result 150 k/mm3 (150-375); Red Blood Count 4.88 M/mm3 (4.6-6.20); White Blood Count 6.2 K/mm3 (4.5-10.0)
[2024-05-04 12:01] VITALS: BP 114/79; PULSE 75; RESP 13; TEMP 36.6; O2SAT 96
[2024-05-04 12:08] LABS: Alanine Aminotransferase 20 U/L (6-50); Albumin Level 4.5 g/dL (3.5-5.1); Alkaline Phosphatase 80 U/L (38-126); Anion Gap 8 mmol/L (4-12); Aspartate Amino Transferase 25 U/L (17-59); Bilirubin,Total 0.7 mg/dL (0.2-1.3); Blood Urea Nitrogen 15 mg/dL (9-20); Carbon Dioxide 24 mmol/L (22-30); Chloride 105 mmol/L (98-107); Estimated CRCL calculation 80 ml/min; Estimated Glomerular Filt Rate > 60; Glucose 95 mg/dL (65-110); Potassium 3.9 mmol/L (3.4-5.0); Sodium 137 mmol/L (137-145)
[2024-05-04 12:16] VITALS: BP 107/81; PULSE 71; RESP 13; O2SAT 97
[2024-05-04 13:15] VITALS: BP 112/80; PULSE 70; RESP 14; TEMP 36.6; O2SAT 94
--- NOTE | 2024-05-04 13:48 | ED.SYNCOPE ---
HPI - Syncope General Chief Complaint: Syncope Stated Complaint: syncopal episode x2 Time Seen by Provider: 05/04/24 12:12 Source: patient Mode of arrival: ambulatory Limitations: no limitations History of Present Illness HPI narrative: 53-year-old with a history of GERD, ulcerative colitis here with a complaint of having a syncopal episode 2 days ago. Patient states that when he woke up from the bed he felt dizzy and fell. He denies having any headache, chest pain or shortness of breath. Denies any abdominal pain or blood in the stool. complaint: almost passed out Onset (ago): day(s) Prodromal symptoms: none Witnessed: Yes - by Other () Context: at rest Injuries sustained associated with event: none Current symptoms: none Related Data Allergies Allergy/AdvReac Type Severity Reaction Status Date / Time No Known Allergies Allergy Verified 05/04/24 11:30 Review of Systems Review of Systems: All systems reviewed & are unremarkable except as noted in HPI and below Constitutional: Constitutional: Reports no additional constitutional complaints Eyes: Eyes: Reports no additional eye complaints ENT: Reports system reviewed and no additional complaints, except as documented Cardiovascular: Cardiovascular: Reports no additional cardiovascular complaints Respiratory: Respiratory: Reports no additional respiratory complaints Gastrointestinal: Gastrointestinal: Reports no additional gastrointestinal complaints Musculoskeletal: Musculoskeletal: Reports no additional musculoskeletal complaints Neurologic: Reports system reviewed and no additional complaints, except as documented Psychiatric: Psychiatric: Reports no additional psychiatric complaints [facility] Past Medical History Medical History Anxiety GERD (gastroesophageal reflux disease) High risk medication use History of kidney cancer Need for hepatitis B screening test Obese JACKI (obstructive sleep apnea) Ulcerative colitis Surgical History Surgical History H/O inguinal hernia repair bilateral H/O umbilical hernia repair History of incisional hernia repair 01/07/2023 - Robotic laparoscopic repair 5 cm recurrent incisional hernia with mesh, removal old abdominal wall mesh History of partial nephrectomy 2013 Social History Social History Smoking status: Never smoker Alcohol intake: current Drinks per week: 2 Alcohol use details: rarely Substance use: never Substance use type: does not use Do You Feel Safe in your Home?: Yes Lack of Transportation: No Lack of Food: Never True Current Housing: I Have Housing Concerned About Future Housing: No Difficulty Paying Gas/Electric Bills: No Difficulty Paying for Meds: No Currently Unemployed: No Education: High School Diploma/GED Difficulty w/ Childcare or Family Care: No Living arrangements: with family Additional living arrangements comments: Occupation/Education: occupation Additional occupation/education comments: [place] [employer], [employer] Gender identity (if verbalized by the patient): Male Spiritual care concerns: No Exam Narrative: GENERAL: Well-appearing, well-nourished, and in no acute distress. HEAD: Normocephalic, atraumatic. EYES: PERRLA and EOMI. ENT: Nares clear, no rhinorrhea or epistaxis. Mucous membranes moist. NECK: Supple. CHEST: Clear to auscultation. No respiratory distress. HEART: Regular rate and rhythm. No murmur heard. Normal peripheral pulses. ABDOMEN: Soft, nontender, nondistended, normal active bowel sounds. EXTREMITIES: Normal range of motion. No edema. SKIN: Warm, dry, no rash. NEURO: No focal deficits. Alert and oriented x3. PSYCH: Normal mood and affect. Course Course Emergency Course: Patient remained asymptomatic here in the ER. I did in
== END 2024-05-04 13:56 | disposition home or self-care (01) ==
PROVIDERS: Emergency Provider Family Medicine; PCP Emergency Medicine
DX: R55 Syncope and collapse (principal); K21.9 Gastro-esophageal reflux disease without esophagitis; K51.90 Ulcerative colitis, unspecified, without complications; G47.33 Obstructive sleep apnea (adult) (pediatric); Z85.528 Personal history of other malignant neoplasm of kidney; Z90.5 Acquired absence of kidney; Z79.82 Long term (current) use of aspirin; Z79.620 Long term (current) use of immunosuppressive biologic; Z79.899 Other long term (current) drug therapy; I45.10 Unspecified right bundle-branch block; R94.31 Abnormal electrocardiogram [ECG] [EKG]
CPT/HCPCS: 36415; 70450; 80053; 85025; 93005; 99284

== ENCOUNTER 2024-08-31 07:54 | Outpatient (CLI) | payer OTHER, SELFPAY ==
--- NOTE | ~2024-08-31 | CT_ITS ---
CT of the Abdomen and Pelvis: Indication: Renal cell carcinoma Technique: 2.5 mm axial scans were obtained through the abdomen and pelvis prior to and following in travenous administration of 130 cc of Omnipaque 350. Dose reduction technique was used on this scan b y utilizing automated exposure control and iterative reconstruction technique. The dose-length produc t (DLP) was 2019.95 mGy-cm. COMPARISON: 08/18/2023 Findings: Scans through the lung bases demonstrates stable 3 mm right middle lobe pleural-based nodu le.. The liver, spleen, pancreas, gallbladder, adrenals and right kidney are within normal limits. Stable postoperative change in the left kidney. No evidence of recurrent mass lesion/malignancy. No evidence of aortic aneurysm. No lymphadenopathy. No bowel obstruction or bowel wall thickening. Prominent stool suggests constipation. Images through the pelvis were performed. Urinary bladder unremarkable. No pelvic mass seen. Prostate gland is enlarged. No ascites. Impression: No evidence of recurrent malignancy or metastatic disease. Stable partial left nephrectomy change. Constipation. Reviewed, dictated and finalized at location . Impression: No evidence of recurrent malignancy or metastatic disease. Stable partial left nephrectomy change. Constipation.
--- NOTE | ~2024-08-31 | XR_ITS ---
EXAMINATION: XR chest 2V 08/31/2024 08:16 INDICATION: Malignant neoplasm of the left kidney PROCEDURE: PA and lateral views the chest COMPARISON: Comparison to multiple prior studies sequentially, with oldest reviewed study dated 07/24. FINDINGS: The lungs are clear. The cardiomediastinal silhouette is within normal limits. There are no pleural effusions. There is no pneumothorax suspected. IMPRESSION: 1: NO ACUTE CARDIOPULMONARY DISEASE. Reviewed, dictated and finalized at location B.
== END 2024-08-31 07:55 | disposition home or self-care (01) ==
PROVIDERS: PCP Emergency Medicine; Visit Provider Urology
DX: C64.2 Malignant neoplasm of left kidney, except renal pelvis (principal); Z90.5 Acquired absence of kidney
CPT/HCPCS: 71046; 74178; Q9967

== ENCOUNTER 2025-03-27 06:40 | Outpatient (CLI) | payer OTHER, SELFPAY ==
[2025-03-27 07:15] LABS: Hematocrit 44.4 % (42.0-52.0); Hemoglobin 14.1 g/dL (14.0-18.0); Mean Corpuscular HGB Conc 31.8 g/dl (32-36); Mean Corpuscular Volume 88.3 fl (80-100); Platelet Count Result 194 k/mm3 (150-375); Red Blood Count 5.03 M/mm3 (4.6-6.20); Red Cell Distribution Width 13.9 % (11.5-14.5); White Blood Count 4.1 K/mm3 (4.5-10.0)
[2025-03-27 07:28] LABS: Alanine Aminotransferase 46 U/L (6-50); Albumin Level 4.3 g/dL (3.5-5.1); Alkaline Phosphatase 69 U/L (38-126); Anion Gap 8 mmol/L (4-12); Aspartate Amino Transferase 39 U/L (17-59); Bilirubin,Total 0.5 mg/dL (0.2-1.3); Blood Urea Nitrogen 17 mg/dL (9-20); Calcium 8.7 mg/dL (8.4-10.2); Carbon Dioxide 26 mmol/L (22-30); Chloride 103 mmol/L (98-107); Cholesterol 191 mg/dL (0-200); Estimated Glomerular Filt Rate > 60; Glucose 112 mg/dL (65-110); HDL Direct 36 mg/dL; Potassium 4.2 mmol/L (3.4-5.0); Sodium 137 mmol/L (137-145); Triglycerides 77 mg/dL (<150)
[2025-03-27 07:30] LABS: CRP < 0.5 mg/dL (<1.0)
[2025-03-27 07:40] LABS: LDL Cholesterol Direct 117 mg/dL
[2025-03-27 07:59] LABS: Erythrocyte Sedimentation Rate 15 mm/hr (0-20); Prostate Specific Antigen 1.8 ng/mL (< OR = 4.0)
[2025-03-27 09:00] LABS: Vitamin D 25 Hydroxy 42.2 ng/mL
== END 2025-03-27 06:41 | disposition home or self-care (01) ==
LOC: ANHLAB 06:43
PROVIDERS: PCP Emergency Medicine; Referring Provider Emergency Medicine; Visit Provider Internal Medicine Gastroenterology
DX: E55.9 Vitamin D deficiency, unspecified (principal); E78.5 Hyperlipidemia, unspecified; Z12.5 Encounter for screening for malignant neoplasm of prostate; K51.90 Ulcerative colitis, unspecified, without complications
CPT/HCPCS: 36415; 80053; 80061; 82306; 84153; 85027; 85652; 86140; G0103

== ENCOUNTER 2025-04-12 09:38 | Outpatient (CLI) | payer OTHER, SELFPAY ==
[2025-04-18 00:33] LABS: Calprotectin, Stool. 12 mcg/g
== END 2025-04-12 09:39 | disposition home or self-care (01) ==
LOC: ANHLAB 09:39
PROVIDERS: PCP Emergency Medicine; Visit Provider Internal Medicine Gastroenterology
DX: K51.90 Ulcerative colitis, unspecified, without complications (principal)
CPT/HCPCS: 83993

== ENCOUNTER 2025-10-15 03:01 | Day surgery (SDC) | payer OTHER, SELFPAY ==
[2025-08-05 13:34] VITALS: BMI 29.7
[2025-09-25 09:47] VITALS: BMI 28.9
[2025-10-15 07:02] VITALS: BP 126/84; PULSE 74; RESP 14; TEMP 36.6; O2SAT 97; BMI 29.9
[2025-10-15] MEDS: LACTATED RINGERS 1,000 ML 150 ML IV CONT (07:19)
--- NOTE | 2025-10-15 07:34 | P.PNAN_ITS ---
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 Patient Data Age: 55 Gender: M Height: 1.88 m Weight: 105.9 kg Last Vital Signs Temp 36.6 C 10/15/25 07:02 Pulse 74 10/15/25 07:02 Resp 14 10/15/25 07:02 BP 126/84 10/15/25 07:02 Pulse Ox 97 10/15/25 07:02 O2 Del Method Room Air 10/15/25 07:02 Allergies Allergy/AdvReac Type Severity Reaction Status Date / Time No Known Allergies Allergy Verified 10/15/25 07:08 Home Medications ?Medication ?Instructions ?Recorded ?Confirmed ?Type sertraline 50 mg tablet See Rx Instructions .Route 0 01/21/25 10/15/25 Rx .COMPLEX #90 tabs sildenafil 100 mg tablet See Rx Instructions .Route 0 02/22/25 08/05/25 Rx .COMPLEX #14 film pantoprazole 40 mg tablet,delayed See Rx Instructions .Route 07/23/25 10/15/25 Rx release .COMPLEX #90 tabs etrasimod 2 mg tablet (Velsipity) See Rx Instructions .Route 08/02/25 10/15/25 Rx .COMPLEX #30 tabs Patient hx anesthesia problems: none Family hx anesthesia problems: none Results Review: All pre-operative results and documents have been reviewed as part of the pre- operative evaluation. [facility] Past Medical History Medical History Sinusitis Acute right ankle pain Shingles Encounter for follow-up examination after completed treatment for conditions other than malignant neoplasm Contact dermatitis Abdominal swelling Obese Need for hepatitis B screening test High risk medication use Anxiety GERD (gastroesophageal reflux disease) Ulcerative colitis History of kidney cancer JACKI (obstructive sleep apnea) Surgical History Surgical History Other specified postprocedural states History of incisional hernia repair 01/07/2023 - Robotic laparoscopic repair 5 cm recurrent incisional hernia with mesh, removal old abdominal wall mesh H/O umbilical hernia repair H/O inguinal hernia repair bilateral History of partial nephrectomy 2013 Social History Social History Smoking status: Never smoker Alcohol intake: current Drinks per week: 2 Alcohol use details: rarely Substance use: never Substance use type: does not use Lack of Transportation: No Lack of Food: Never True Current Housing: I Have Housing Concerned About Future Housing: No Difficulty Paying Gas/Electric Bills: No Difficulty Paying for Meds: No Currently Unemployed: No Education: High School Diploma/GED Difficulty w/ Childcare or Family Care: No Living arrangements: with family Additional living arrangements comments: Occupation/Education: occupation Additional occupation/education comments: [place], [employer] Gender identity (if verbalized by the patient): Male Spiritual care concerns: No Anes - Eval Final PreProcedure Day of Procedure 10/15/25 07:34 Patient weight: obese Heart: regular rate and rhythm Lungs: clear to auscultation Airway: Mallampati scale class III Neurological: alert and oriented Last oral intake: >/= 8 hours ASA classification: III Emergent: no Anesthetic plan: proceed Anesthesia type and monitoring: general GIVS and standard monitoring Results Review: All pre-operative results and documents have been reviewed as part of the pre- operative evaluation. Informed Consent: The patient's anesthetic plan and its attendant risks and benefits were discussed with the patient/family/POA. Questions were solicited and answers provided to the satisfaction of the patient/family/POA.
--- NOTE | 2025-10-15 08:13 | P.HP_ITS ---
History of Present Illness History of Present Illness Consent: Risks, benefits, and alternatives have been discussed and questions answered. Patient agrees to proceed with procedure. 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 He was first dx with left sided UC in 2002. He was Humira every 2 weeks for almost 5 years and was for the most part under control. On 08/2022, had a large high-grade sigmoid colon polyp removed. Follow-up colonoscopy 3 months later with no evidence of high-grade dysplasia. Last colonoscopy 02/2024 noted mild colitis in left colon, normal right but bx showed left and rt colitis, no dysplasia, site of previous tattoo without dysplasia. His insurance changed and did not cover humira anymore therefore started on velsipity 09/2024 doing well. Review of Systems Review of Systems: All systems reviewed & are unremarkable except as noted in HPI and below PMFSH Past Medical History Medical History Sinusitis Acute right ankle pain Shingles Encounter for follow-up examination after completed treatment for conditions other than malignant neoplasm Contact dermatitis Abdominal swelling Obese Need for hepatitis B screening test High risk medication use Anxiety GERD (gastroesophageal reflux disease) Ulcerative colitis History of kidney cancer JACKI (obstructive sleep apnea) Surgical History Surgical History Other specified postprocedural states History of incisional hernia repair 01/07/2023 - Robotic laparoscopic repair 5 cm recurrent incisional hernia with mesh, removal old abdominal wall mesh H/O umbilical hernia repair H/O inguinal hernia repair bilateral History of partial nephrectomy 2013 Social History Social History Smoking status: Never smoker Alcohol intake: current Drinks per week: 2 Alcohol use details: rarely Substance use: never Substance use type: does not use Lack of Transportation: No Lack of Food: Never True Current Housing: I Have Housing Concerned About Future Housing: No Difficulty Paying Gas/Electric Bills: No Difficulty Paying for Meds: No Currently Unemployed: No Education: High School Diploma/GED Difficulty w/ Childcare or Family Care: No Living arrangements: with family Additional living arrangements comments: Occupation/Education: occupation Additional occupation/education comments: [employer], [employer] Gender identity (if verbalized by the patient): Male Spiritual care concerns: No Meds Home Medications and Allergies Home Medications ?Medication ?Instructions ?Recorded ?Confirmed ?Type sertraline 50 mg tablet See Rx Instructions .Route 0 01/21/25 10/15/25 Rx .COMPLEX #90 tabs sildenafil 100 mg tablet See Rx Instructions .Route 0 02/22/25 08/05/25 Rx .COMPLEX #14 film pantoprazole 40 mg tablet,delayed See Rx Instructions .Route 07/23/25 10/15/25 Rx release .COMPLEX #90 tabs etrasimod 2 mg tablet (Velsipity) See Rx Instructions .Route 08/02/25 10/15/25 Rx .COMPLEX #30 tabs Allergies Allergy/AdvReac Type Severity Reaction Status Date / Time No Known Allergies Allergy Verified 10/15/25 07:08 Vital Signs Vital Signs - 24 hr 10/15/25 07:02 Temperature 97.8 F Pulse Rate 74 Respiratory Rate 14 Blood Pressure 126/84 Pulse Oximetry 97 Oxygen Delivery Room Air Exam Const: General: comfortable and no acute distress HENMT: Face/Nose/Sinus: Normal nares present Eyes: General: appearance normal, both eyes and all related structures Resp: Auscultation: clear to auscultation bilaterally Cardio: Rate: regular rate Rhythm: regular rhythm GI: Inspection: non-distended GI Palp: Yes Soft to palpation Skin: General skin exam: normal color Extrem: General: normal to inspection Psych: Mental Status: mental status grossly normal Assessment and Plan Assessment and plan (1) Ulcerative colitis: Qualifiers: Ulcerative colitis location: ulcerative proctitis Digestive disease complication type: without complication Qualified Code(s): K51.20 - Ulcerative (chronic) proctitis without complications Code(s): K51.90 - Ulcerative colitis, unspecified, without complications Status: Chronic Assessment and Plan: doing well on velsipity colonoscopy for surveillance of dysplasia
[2025-10-15 08:44] VITALS: BP 113/74; PULSE 66; RESP 16; O2SAT 96
--- NOTE | 2025-10-15 08:47 | S_PTH ---
PATIENT: Vickey Davison LOC: [facility]#:[id number] AGE/SX: 55/M ROOM: RE10/15/[address]: Perfecto Gee MD : 1970 BED: DIS: 10/15/2025 SPEC #: [id number] RECD: 10/15/25 10:19 STATUS: TIMA RERamses #: [id number] MARISELA: 10/15/25 08:[address]: Perfecto Gee DEPT: [facility] Surgical RECD BY: Ruben Santos ENTERED: 10/15/25 10:21 SP TYPE: Surgical OTHR DR: Mik Cedillo MD Tissues: A - Colon Biopsy B - Colon Biopsy C - Colon Biopsy D - Colon Polypectomy Procedures: Hematoxylin and Eosin Stain Gross and Microscopic Level 4
[2025-10-15 08:54] VITALS: BP 105/71; PULSE 67; RESP 15; O2SAT 97
[2025-10-15 09:04] VITALS: BP 108/73; PULSE 61; RESP 12; O2SAT 96
== END 2025-10-15 09:10 | disposition home or self-care (01) ==
PROVIDERS: PCP Emergency Medicine; Referring Provider Internal Medicine Gastroenterology; Visit Provider Internal Medicine Gastroenterology
PROC: 0DJD8ZZ Inspection of Lower Intestinal Tract, Via Natural or Artificial Opening Endoscopic (ICD-10-PCS; CPT 45378; principal; 2025-10-15 08:30)
DX: K51.30 Ulcerative (chronic) rectosigmoiditis without complications (principal); K63.5 Polyp of colon; E66.9 Obesity, unspecified; Z68.30 Body mass index [BMI] 30.0-30.9, adult
CPT/HCPCS: 45338; 45331; 88305; J2003; J2704; J7120